=== PATIENT | female | born 1935 | race Caucasian/White ===

== ENCOUNTER → 2016-12-09 | Outpatient (CLI) | payer MEDICARE, OTHER ==
[~2016-12-09] MED LIST: ALBUPOW25 INH; FLUT250M2 IN; LOSA50TA6 PO; METO25TA5 PO; SIMV-8 PO
[2016-12-09 10:13] LABS: Basophils # (auto) 0 uL; Basophils % (auto) 0.4 % (0.0-2.0); DEFINITIVE VIEW TRANSMISSION; Eosinophils # (auto) 0.1 uL; Eosinophils % (auto) 1.2 % (0.0-7.0); Hematocrit 43.4 % (36.0-46.0); Hemoglobin 13.6 g/dL (12.2-16.2); Lymphocytes # (auto) 1.3 uL; Lymphocytes % (auto) 19.1 % (10.0-50.0); Mean Corpuscular Hemoglobin 26.7 pg (28.0-32.0); Mean Corpuscular Hgb Conc. 31.3 g/dL (32.0-36.0); Mean Corpuscular Volume 85.3 fL (80.0-100.0); Mean Platelet Volume 8.6 fL (7.4-10.4); Monocytes # (auto) 0.5 uL; Monocytes % (auto) 6.8 % (0.0-12.0); Neutrophils # (auto) 5.1 uL; Neutrophils % (auto) 72.5 % (37.0-80.0); Platelet Count (auto) 272 10^3/uL (140-450); SUSPECT VIEW TRANSMISSION
[2016-12-09 10:24] LABS: Red Cell Distribution Width 31.6 % (11.6-16.0)
[2016-12-09 10:40] LABS: Albumin 3.9 g/dL (3.4-5.0); BUN/Creatinine Ratio 30.9; Bilirubin, Total 0.4 mg/dL (0.2-1.0); Calcium 10.3 mg/dL (8.5-10.1); Potassium 4.1 mmol/L (3.5-5.1)
[2016-12-09 10:54] LABS: Platelet Estimate Adequate
[2016-12-09 10:55] LABS: Anisocytosis Moderate
[2016-12-09 10:56] LABS: Hypochromia Slight
== END | disposition home or self-care (01) ==
LOC: LAB 08:10
PROVIDERS: ATTEND Family Medicine
DX: D50.9 Iron deficiency anemia, unspecified (principal)
CPT/HCPCS: 36415; 80053; 85025; 85049

== ENCOUNTER → 2017-12-17 | Outpatient (CLI) | payer MEDICARE, OTHER ==
[~2017-12-17] MED LIST changes: +ALB5IS NEB; +DOXY-112 PO; +IPR002IS NEB; +METH4PAK PO
[2017-12-17 08:09] LABS: Basophils # (auto) 0 uL; Basophils % (auto) 0.4 % (0.0-2.0); Eosinophils # (auto) 0.1 uL; Eosinophils % (auto) 1.9 % (0.0-7.0); Hematocrit 44.1 % (36.0-46.0); Hemoglobin 14.6 g/dL (12.2-16.2); Lymphocytes # (auto) 1.3 uL; Lymphocytes % (auto) 21.5 % (10.0-50.0); Mean Corpuscular Hemoglobin 33.2 pg (28.0-32.0); Mean Corpuscular Hgb Conc. 33.1 g/dL (32.0-36.0); Mean Corpuscular Volume 100.4 fL (80.0-100.0); Monocytes # (auto) 0.5 uL; Monocytes % (auto) 8.2 % (0.0-12.0); Neutrophils # (auto) 4.1 uL; Nucleated Red Blood Cells % 0.1 %; Platelet Count (auto) 204 10^3/uL (140-450); Red Blood Cells 4.39 10^6/uL (4.0-5.20); Red Cell Distribution Width 14.8 % (11.8-14.3)
[2017-12-17 09:13] LABS: Albumin 4.3 g/dL (3.4-5.0); Bilirubin, Total 0.8 mg/dL (0.2-1.0); Calcium 9.4 mg/dL (8.5-10.1); Potassium 4.3 mmol/L (3.5-5.1); Total Protein 8.2 g/dL (6.4-8.2)
[2017-12-17 09:53] LABS: Urine Bacteria MANY /hpf (None Seen); Urine Blood TRACE /uL (Negative); Urine Mucus FEW (None Seen); Urine WBC 38 /hpf (0 - 5)
== END | disposition home or self-care (01) ==
LOC: LAB 07:31
PROVIDERS: ATTEND Family Medicine
DX: I11.0 Hypertensive heart disease with heart failure (principal); I50.9 Heart failure, unspecified; J44.9 Chronic obstructive pulmonary disease, unspecified; M17.9 Osteoarthritis of knee, unspecified; D50.8 Other iron deficiency anemias; E78.4 Other hyperlipidemia; Z72.0 Tobacco use; Z79.899 Other long term (current) drug therapy
CPT/HCPCS: 36415; 80053; 80061; 81001; 82306; 84443; 85025

== ENCOUNTER 2017-12-26 01:53 | Inpatient (IN) | payer MEDICARE, OTHER ==
[~2017-12-26] VITALS: Ht 167.6 cm; Wt 63.3 kg
[~2017-12-26 01:53] MED LIST changes: -ALB5IS NEB; -DOXY-112 PO; -IPR002IS NEB; -METH4PAK PO
[2017-12-26 07:08] LABS: Basophils # (auto) 0 uL; Basophils % (auto) 0.3 % (0.0-2.0); Eosinophils # (auto) 0.1 uL; Eosinophils % (auto) 1.2 % (0.0-7.0); Lymphocytes # (auto) 0.7 uL; Mean Corpuscular Hemoglobin 33.8 pg (28.0-32.0); Mean Corpuscular Hgb Conc. 33.2 g/dL (32.0-36.0); Mean Corpuscular Volume 101.5 fL (80.0-100.0); Monocytes # (auto) 0.4 uL; Monocytes % (auto) 7.6 % (0.0-12.0); Neutrophils # (auto) 3.7 uL; Neutrophils % (auto) 76.9 % (37.0-80.0); Nucleated Red Blood Cells % 0.1 %; Platelet Count (auto) 154 10^3/uL (140-450); Red Blood Cells 3.84 10^6/uL (4.0-5.20); Red Cell Distribution Width 14.3 % (11.8-14.3); White Blood Cell 4.9 10^3/uL (4.4-10.8)
[2017-12-26 07:14] LABS: INR 0.95 (0.9-1.15); Partial Thromboplastin Time 26.1 sec (22.64-33.71); Prothrombin Time 10.4 sec (9.37-12.3)
[2017-12-26] MEDS ORDERED: methylPREDNISolone SOD SUCC 125 MG/2 ML VL IV ONE (07:15)
[2017-12-26] MEDS ORDERED: ALBUTEROL SULF 2.5 MG/0.5ML(0.5%) NEB SOLN HHN ONE (07:15)
[2017-12-26] MEDS ORDERED: IPRATROPIUM BROM 0.5 MG/2.5ML INH SOL HHN ONE (07:15)
[2017-12-26] MEDS ORDERED: LEVOFLOXACIN 500MG 100 ML IV ONE (07:15)
[2017-12-26 07:16] LABS: Alanine Aminotransferase 28 U/L (13-56); Albumin 3.4 g/dL (3.4-5.0); Anion Gap 10 (5-15); Aspartate Aminotransferase 24 U/L (15-37); Blood Urea Nitrogen 23 mg/dL (7-18); Calcium 8.6 mg/dL (8.5-10.1); Carbon Dioxide 25 mmol/L (21-32); Chloride 105 mmol/L (98-107); GFR African American 72 mL/min; GFR Non-African American 59 mL/min; Glucose 94 mg/dL (74-106); Potassium 3.9 mmol/L (3.5-5.1); Sodium 140 mmol/L (136-145)
[2017-12-26 07:19] LABS: Alkaline Phosphatase 78 U/L (45-117); Bilirubin, Total 0.4 mg/dL (0.2-1.0); Total Protein 6.8 g/dL (6.4-8.2)
[2017-12-26] MEDS ORDERED: ONDANSETRON HCL 4 MG/2 ML VIAL IV PRN (08:00)
[2017-12-26] MEDS ORDERED: ACETAMINOPHEN 500 MG TAB PO PRN (08:00)
[2017-12-26] MEDS ORDERED: HYDROcodone-ACET 5/325MG TAB PO PRN (08:00)
[2017-12-26] MEDS: DOXYCYCLINE HYC 100MG/250ML 250 ML IV SCH ×2 (08:41→20:43)
[2017-12-26 09:05] VITALS: BP 133/74
[2017-12-26] MEDS: methylPREDNISolone SOD SUCC 40 MG/ML VL IV SCH ×2 (10:00→21:19)
[2017-12-26 10:13] LABS: Urine Bacteria NONE SEEN /hpf (None Seen); Urine Blood 1+ /uL (Negative); Urine Specific Gravity 1.024 (1.001-1.035); Urine WBC 15 /hpf (0 - 5)
[2017-12-26] MEDS: METOPROLOL TARTRATE 25 MG TAB PO SCH ×2 (10:26→21:39)
[2017-12-26] MEDS: IPRATROPIUM BROM 0.5 MG/2.5ML INH SOL NEB SCH ×2 (12:38→18:00)
[2017-12-26] MEDS: ALBUTEROL SULF 2.5 MG/0.5ML(0.5%) NEB SOLN NEB SCH ×2 (12:39→18:00)
[2017-12-26 16:45] VITALS: BP 144/87
[2017-12-26 20:00] VITALS: BP 136/81
[2017-12-26 22:00] VITALS: BP 136/81
[2017-12-27 01:28] VITALS: BP 133/80
[2017-12-27 05:00] VITALS: BP 141/78
[2017-12-27] MEDS: ALBUTEROL SULF 2.5 MG/0.5ML(0.5%) NEB SOLN NEB SCH ×4 (06:10→19:24)
[2017-12-27] MEDS: IPRATROPIUM BROM 0.5 MG/2.5ML INH SOL NEB SCH ×4 (06:10→19:24)
[2017-12-27 07:07] LABS: Basophils # (auto) 0 uL; Eosinophils # (auto) 0 uL; Hematocrit 36.9 % (36.0-46.0); Hemoglobin 12.5 g/dL (12.2-16.2); Lymphocytes # (auto) 0.3 uL; Lymphocytes % (auto) 3.9 % (10.0-50.0); Mean Corpuscular Hemoglobin 33.9 pg (28.0-32.0); Mean Corpuscular Hgb Conc. 33.9 g/dL (32.0-36.0); Mean Corpuscular Volume 100.1 fL (80.0-100.0); Monocytes # (auto) 0.2 uL; Monocytes % (auto) 2.9 % (0.0-12.0); Neutrophils # (auto) 7.4 uL; Neutrophils % (auto) 93.2 % (37.0-80.0); Nucleated Red Blood Cells % 0.1 %; Platelet Count (auto) 150 10^3/uL (140-450); Red Blood Cells 3.69 10^6/uL (4.0-5.20)
[2017-12-27 07:26] LABS: BUN/Creatinine Ratio 30.9; Calcium 8.6 mg/dL (8.5-10.1); Potassium 4.3 mmol/L (3.5-5.1)
[2017-12-27 08:00] VITALS: BP_SYST 102; BP_SYST 133; BP_DIAS 48; BP_DIAS 80
[2017-12-27] MEDS: methylPREDNISolone SOD SUCC 40 MG/ML VL IV SCH ×3 (09:53→21:53)
[2017-12-27] MEDS: DOXYCYCLINE HYC 100MG/250ML 250 ML IV SCH ×2 (09:53→20:41)
[2017-12-27] MEDS: METOPROLOL TARTRATE 25 MG TAB PO SCH ×2 (09:54→21:53)
[2017-12-27 12:42] VITALS: BP 151/86
[2017-12-27] MEDS: SODIUM CHLORIDE 0.9% 1,000 ML IV SCH ×2 (13:06→21:15)
[2017-12-27 16:26] VITALS: BP 140/81
[2017-12-27 22:00] VITALS: BP 139/80
[2017-12-28 05:00] VITALS: BP 133/74
[2017-12-28] MEDS: methylPREDNISolone SOD SUCC 40 MG/ML VL IV SCH ×3 (05:52→22:05)
[2017-12-28] MEDS: IPRATROPIUM BROM 0.5 MG/2.5ML INH SOL NEB SCH ×4 (06:08→18:48)
[2017-12-28] MEDS: ALBUTEROL SULF 2.5 MG/0.5ML(0.5%) NEB SOLN NEB SCH ×4 (06:08→18:48)
[2017-12-28 06:52] LABS: Basophils # (auto) 0 uL; Basophils % (auto) 0.1 % (0.0-2.0); Eosinophils # (auto) 0 uL; Hematocrit 38.5 % (36.0-46.0); Hemoglobin 12.6 g/dL (12.2-16.2); Lymphocytes # (auto) 0.4 uL; Lymphocytes % (auto) 3.5 % (10.0-50.0); Mean Corpuscular Hemoglobin 33.1 pg (28.0-32.0); Mean Corpuscular Hgb Conc. 32.7 g/dL (32.0-36.0); Mean Corpuscular Volume 101.1 fL (80.0-100.0); Monocytes # (auto) 0.2 uL; Monocytes % (auto) 2.2 % (0.0-12.0); Neutrophils # (auto) 10.8 uL; Neutrophils % (auto) 94.2 % (37.0-80.0); Nucleated Red Blood Cells % 0.1 %; Platelet Count (auto) 163 10^3/uL (140-450); Red Cell Distribution Width 14.2 % (11.8-14.3); White Blood Cell 11.5 10^3/uL (4.4-10.8)
[2017-12-28 07:10] LABS: BUN/Creatinine Ratio 35.2; Potassium 4.1 mmol/L (3.5-5.1)
[2017-12-28] MEDS: SODIUM CHLORIDE 0.9% 1,000 ML IV SCH (07:15)
[2017-12-28] MEDS ORDERED: DEXTROSE (50%) 50ML SYRG IV ONE (07:45)
[2017-12-28 09:00] VITALS: BP 118/65
[2017-12-28] MEDS ORDERED: DEXTROSE (50%) 50ML SYRG IV PRN ×2 (09:30→14:15)
[2017-12-28] MEDS: DOXYCYCLINE HYC 100MG/250ML 250 ML IV SCH ×2 (09:37→20:03)
[2017-12-28] MEDS: METOPROLOL TARTRATE 25 MG TAB PO SCH ×2 (09:39→22:06)
[2017-12-28] MEDS ORDERED: InsuLIN REG 1unit/0.01ml Soln (100units/ml) SC ONE (11:30)
[2017-12-28] MEDS ORDERED: ACCU-CHEK COMFORT CURVE STRIP VI ONE (11:30)
[2017-12-28 13:00] VITALS: BP 131/83
[2017-12-28 17:00] VITALS: BP 136/68
[2017-12-28] MEDS: InsuLIN REG 1unit/0.01ml Soln (100units/ml) SC SCH ×2 (17:00→22:06)
[2017-12-28] MEDS: ACCU-CHEK COMFORT CURVE STRIP VI SCH ×2 (17:48→22:06)
[2017-12-28 22:00] VITALS: BP 157/87
[2017-12-29] MEDS: ALBUTEROL SULF 2.5 MG/0.5ML(0.5%) NEB SOLN NEB SCH ×3 (00:59→11:51)
[2017-12-29] MEDS: IPRATROPIUM BROM 0.5 MG/2.5ML INH SOL NEB SCH ×3 (01:00→11:51)
[2017-12-29 05:00] VITALS: BP 147/78
[2017-12-29] MEDS: methylPREDNISolone SOD SUCC 40 MG/ML VL IV SCH ×2 (06:24→14:00)
[2017-12-29] MEDS: ACCU-CHEK COMFORT CURVE STRIP VI SCH ×2 (06:25→11:30)
[2017-12-29] MEDS: InsuLIN REG 1unit/0.01ml Soln (100units/ml) SC SCH ×2 (06:31→11:30)
[2017-12-29 07:01] LABS: Basophils # (auto) 0 uL; Eosinophils # (auto) 0 uL; Hematocrit 39.9 % (36.0-46.0); Hemoglobin 13.5 g/dL (12.2-16.2); Lymphocytes # (auto) 0.3 uL; Lymphocytes % (auto) 3.3 % (10.0-50.0); Mean Corpuscular Hemoglobin 33.6 pg (28.0-32.0); Mean Corpuscular Hgb Conc. 33.8 g/dL (32.0-36.0); Mean Corpuscular Volume 99.5 fL (80.0-100.0); Monocytes # (auto) 0.3 uL; Monocytes % (auto) 2.9 % (0.0-12.0); Neutrophils # (auto) 9.5 uL; Neutrophils % (auto) 93.8 % (37.0-80.0); Platelet Count (auto) 165 10^3/uL (140-450); Red Blood Cells 4.01 10^6/uL (4.0-5.20); White Blood Cell 10.1 10^3/uL (4.4-10.8)
[2017-12-29 07:10] LABS: Potassium 4.3 mmol/L (3.5-5.1)
[2017-12-29 07:19] LABS: BUN/Creatinine Ratio 32.6; Calcium 9.3 mg/dL (8.5-10.1)
[2017-12-29 09:00] VITALS: BP 138/66
[2017-12-29] MEDS: METOPROLOL TARTRATE 25 MG TAB PO SCH (10:13)
[2017-12-29] MEDS: DOXYCYCLINE HYC 100MG/250ML 250 ML IV SCH (10:13)
[2017-12-29] MEDS ORDERED: ALB5IS NEB (10:38)
[2017-12-29] MEDS ORDERED: DOXY-112 PO (10:38)
[2017-12-29] MEDS ORDERED: IPR002IS NEB (10:38)
[2017-12-29] MEDS ORDERED: METH4PAK PO (10:38)
[2017-12-29 13:00] VITALS: BP 152/81
[2017-12-29] MEDS ORDERED: cloNIDine HCL 0.1 MG TAB PO ONE (15:15)
[2017-12-29 16:54] VITALS: BP 167/110
[2017-12-29 17:25] VITALS: BP 152/81
[2017-12-29] MEDS ORDERED: DOXYCYCLINE 100 MG TAB/CAP PO SCH (22:00)
== END 2017-12-29 17:45 | disposition home health service (06) | DRG 189 ==
LOC: EDBD 01:53 → ER 01:53 → OVERFLOW 01:54 → WEST WING 11:45
PROVIDERS: ADMIT Nurse Practitioner Family; ATTEND Internal Medicine
DX: J96.00 Acute respiratory failure, unspecified whether with hypoxia or hypercapnia (principal); I48.91 Unspecified atrial fibrillation; J44.1 Chronic obstructive pulmonary disease with (acute) exacerbation; Z99.81 Dependence on supplemental oxygen; I12.9 Hypertensive chronic kidney disease with stage 1 through stage 4 chronic kidney disease, or unspecified chronic kidney disease; N18.9 Chronic kidney disease, unspecified; E78.5 Hyperlipidemia, unspecified; F17.210 Nicotine dependence, cigarettes, uncomplicated; Z79.899 Other long term (current) drug therapy; Z83.3 Family history of diabetes mellitus; Z90.710 Acquired absence of both cervix and uterus; Z90.49 Acquired absence of other specified parts of digestive tract; Z71.6 Tobacco abuse counseling
CPT/HCPCS: 36415; 71045; 80048; 80053; 81001; 82962; 83605; 83880; 84484; 85025; 85610; 85730; 87040; 87086; 87400; 93005; 94640; 94644; 94761; 96365; 96375; J1815; J1956; J3490

== ENCOUNTER 2018-05-09 21:18 | Emergency (ER) | payer MEDICARE, OTHER ==
[~2018-05-09] VITALS: Ht 162.6 cm; Wt 68.0 kg
[~2018-05-09 21:18] MED LIST changes: +ALB5IS NEB; +DOXY-112 PO; +IPR002IS NEB; +METH4PAK PO
[2018-05-09 23:34] LABS: Basophils # (auto) 0 uL; Basophils % (auto) 0.4 % (0.0-2.0); Eosinophils # (auto) 0 uL; Eosinophils % (auto) 0.3 % (0.0-7.0); Hematocrit 40.9 % (36.0-46.0); Hemoglobin 13.6 g/dL (12.2-16.2); Lymphocytes # (auto) 1.2 uL; Lymphocytes % (auto) 13.5 % (10.0-50.0); Mean Corpuscular Hemoglobin 32.6 pg (28.0-32.0); Mean Corpuscular Hgb Conc. 33.3 g/dL (32.0-36.0); Mean Corpuscular Volume 97.9 fL (80.0-100.0); Monocytes # (auto) 0.5 uL; Monocytes % (auto) 5.7 % (0.0-12.0); Neutrophils # (auto) 6.9 uL; Neutrophils % (auto) 80.1 % (37.0-80.0); Platelet Count (auto) 173 10^3/uL (140-450); Red Blood Cells 4.18 10^6/uL (4.0-5.20); Red Cell Distribution Width 14.8 % (11.8-14.3); White Blood Cell 8.6 10^3/uL (4.4-10.8)
[2018-05-09 23:45] LABS: INR 0.91 (0.9-1.15); Partial Thromboplastin Time 24.5 sec (23.78-33.04); Prothrombin Time 9.8 sec (9.27-12.13)
[2018-05-09 23:57] LABS: Albumin 3.9 g/dL (3.4-5.0); Calcium 8.4 mg/dL (8.5-10.1); Potassium 4.4 mmol/L (3.5-5.1)
[2018-05-10 00:03] LABS: Bilirubin, Total 0.4 mg/dL (0.2-1.0); Total Protein 7.2 g/dL (6.4-8.2)
[2018-05-10 00:05] LABS: BUN/Creatinine Ratio 34.3
[2018-05-10] MEDS ORDERED: METOPROLOL TARTRATE 50 MG TAB PO ONE (01:15)
[2018-05-10] MEDS ORDERED: THIAMINE HCL 100 MG TAB PO ONE (01:15)
[2018-05-10] MEDS ORDERED: METOPROLOL TARTRATE 25 MG TAB PO ONE (01:30)
[2018-05-10 04:00] VITALS: BP 118/92
== END 2018-05-10 03:29 | disposition home or self-care (01) ==
LOC: EDBD 21:18 → ER 21:21
DX: S00.93XA Contusion of unspecified part of head, initial encounter (principal); F10.10 Alcohol abuse, uncomplicated; R00.0 Tachycardia, unspecified; I48.91 Unspecified atrial fibrillation; I12.9 Hypertensive chronic kidney disease with stage 1 through stage 4 chronic kidney disease, or unspecified chronic kidney disease; N18.9 Chronic kidney disease, unspecified; J44.9 Chronic obstructive pulmonary disease, unspecified; E78.5 Hyperlipidemia, unspecified; F17.210 Nicotine dependence, cigarettes, uncomplicated; Z79.899 Other long term (current) drug therapy; Z90.49 Acquired absence of other specified parts of digestive tract; Z90.710 Acquired absence of both cervix and uterus; W18.39XA Other fall on same level, initial encounter; Y93.89 Activity, other specified; Y99.8 Other external cause status; Y92.008 Other place in unspecified non-institutional (private) residence as the place of occurrence of the external cause
CPT/HCPCS: 36415; 70450; 71045; 72125; 80053; 85025; 85610; 85730; 93005

== ENCOUNTER 2019-02-07 12:39 | Emergency (ER) | payer MEDICARE, OTHER ==
[~2019-02-07] VITALS: Ht 152.4 cm; Wt 61.7 kg
[~2019-02-07 12:39] MED LIST changes: +LOSA-46 PO; -LOSA50TA6 PO
[2019-02-07 12:46] VITALS: BP 144/71
[2019-02-07] MEDS ORDERED: KETOROLAC TROMETH 30 MG/ML 1ML VIAL IM ONE (14:30)
== END 2019-02-07 14:57 | disposition home or self-care (01) ==
LOC: ER 12:44
DX: M47.892 Other spondylosis, cervical region (principal); M62.838 Other muscle spasm; J44.9 Chronic obstructive pulmonary disease, unspecified; E78.5 Hyperlipidemia, unspecified; I12.9 Hypertensive chronic kidney disease with stage 1 through stage 4 chronic kidney disease, or unspecified chronic kidney disease; N18.9 Chronic kidney disease, unspecified; I48.91 Unspecified atrial fibrillation; F17.210 Nicotine dependence, cigarettes, uncomplicated; Z90.49 Acquired absence of other specified parts of digestive tract; Z90.710 Acquired absence of both cervix and uterus
CPT/HCPCS: 72125; 93005; 96372; 99284; J1885

== ENCOUNTER → 2019-03-09 | Outpatient (CLI) | payer MEDICARE, OTHER ==
[2019-03-09 10:47] LABS: Basophils # (auto) 0 uL; Basophils % (auto) 0.2 % (0.0-2.0); Eosinophils # (auto) 0.1 uL; Eosinophils % (auto) 0.9 % (0.0-7.0); Hematocrit 39.8 % (36.0-46.0); Hemoglobin 12.5 g/dL (12.2-16.2); Lymphocytes # (auto) 0.9 uL; Mean Corpuscular Hemoglobin 28.7 pg (28.0-32.0); Mean Corpuscular Hgb Conc. 31.5 g/dL (32.0-36.0); Mean Corpuscular Volume 91.1 fL (80.0-100.0); Monocytes # (auto) 0.3 uL; Monocytes % (auto) 5.3 % (0.0-12.0); Neutrophils # (auto) 4.7 uL; Neutrophils % (auto) 78.6 % (37.0-80.0); Nucleated Red Blood Cells % 0.1 %; Platelet Count (auto) 253 10^3/uL (140-450); Red Blood Cells 4.36 10^6/uL (4.0-5.20); Red Cell Distribution Width 16.5 % (11.8-14.3)
[2019-03-09 10:48] LABS: Urine Bacteria FEW /hpf (None Seen); Urine Blood Negative /uL (Negative); Urine Specific Gravity 1.017 (1.001-1.035); Urine WBC 51 /hpf (0 - 5)
[2019-03-09 11:01] LABS: Potassium 4.3 mmol/L (3.5-5.1)
[2019-03-09 11:13] LABS: Albumin 4.1 g/dL (3.4-5.0); Bilirubin, Total 0.4 mg/dL (0.2-1.0); Calcium 10.2 mg/dL (8.5-10.1)
== END | disposition home or self-care (01) ==
LOC: LAB 09:20
PROVIDERS: ATTEND Family Medicine
DX: M17.11 Unilateral primary osteoarthritis, right knee (principal); I10 Essential (primary) hypertension; E78.49 Other hyperlipidemia; J44.9 Chronic obstructive pulmonary disease, unspecified; E55.9 Vitamin D deficiency, unspecified; Z72.0 Tobacco use
CPT/HCPCS: 36415; 80053; 80061; 81001; 82306; 82607; 84443; 85025

== ENCOUNTER → 2019-12-17 | Outpatient (CLI) | payer MEDICARE, OTHER ==
[~2019-12-17] MED LIST changes: -LOSA-46 PO; +LOSA-69 PO
[2019-12-17 09:11] LABS: Basophils # (auto) 0 uL; Eosinophils # (auto) 0.1 uL; Lymphocytes # (auto) 0.9 uL; Monocytes # (auto) 0.4 uL; Neutrophils # (auto) 3.5 uL; Nucleated Red Blood Cells % 0.1 %
[2019-12-17 09:14] LABS: Basophils % (auto) 0.4 % (0.0-2.0); Hematocrit 34.7 % (36.0-46.0); Hemoglobin 10.8 g/dL (12.2-16.2); Lymphocytes % (auto) 18.8 % (10.0-50.0); Mean Corpuscular Hemoglobin 25.3 pg (28.0-32.0); Mean Corpuscular Hgb Conc. 31.2 g/dL (32.0-36.0); Monocytes % (auto) 8.9 % (0.0-12.0); Neutrophils % (auto) 70.9 % (37.0-80.0); Platelet Count (auto) 261 10^3/uL (140-450); Red Blood Cells 4.28 10^6/uL (4.0-5.20)
[2019-12-17 09:17] LABS: Red Cell Distribution Width 26.8 % (11.8-14.3)
[2019-12-17 09:21] LABS: Urine Bacteria FEW /hpf (None Seen); Urine Blood Negative /uL (Negative); Urine Hyaline Cast FEW /lpf (0 - 2); Urine Specific Gravity 1.017 (1.001-1.035); Urine WBC 39 /hpf (0 - 5)
[2019-12-17 09:54] LABS: Albumin 3.9 g/dL (3.4-5.0); Potassium 5.2 mmol/L (3.5-5.1)
[2019-12-17 10:02] LABS: BUN/Creatinine Ratio 21.5; Bilirubin, Total 0.5 mg/dL (0.2-1.0); Calcium 10.9 mg/dL (8.5-10.1); Total Protein 7.3 g/dL (6.4-8.2)
== END | disposition home or self-care (01) ==
LOC: LAB 08:38
PROVIDERS: ATTEND Family Medicine
DX: I10 Essential (primary) hypertension (principal); E55.9 Vitamin D deficiency, unspecified; J44.9 Chronic obstructive pulmonary disease, unspecified; E78.49 Other hyperlipidemia; D50.9 Iron deficiency anemia, unspecified; Z72.0 Tobacco use; Z99.89 Dependence on other enabling machines and devices
CPT/HCPCS: 36415; 80053; 80061; 81001; 82306; 84443; 85025

== ENCOUNTER → 2020-10-17 | Outpatient (CLI) | payer MEDICARE, OTHER ==
[2020-10-17 13:55] LABS: Basophils # (auto) 0 10 ^3/uL (0-0.2); Basophils % (auto) 0.4 % (0.0-2.0); Eosinophils # (auto) 0.1 10 ^3/uL (0-0.8); Eosinophils % (auto) 1.5 % (0.0-7.0); Hematocrit 43.9 % (36.0-46.0); Hemoglobin 14.5 g/dL (12.2-16.2); Lymphocytes # (auto) 1.1 10 ^3/uL (0.4-5.4); Lymphocytes % (auto) 15.1 % (10.0-50.0); Mean Corpuscular Hemoglobin 28.4 pg (28.0-32.0); Mean Corpuscular Hgb Conc. 32.9 g/dL (32.0-36.0); Mean Corpuscular Volume 86.3 fL (80.0-100.0); Monocytes # (auto) 0.4 10 ^3/uL (0-1.3); Monocytes % (auto) 6.3 % (0.0-12.0); Neutrophils # (auto) 5.5 10 ^3/uL (1.6-8.6); Neutrophils % (auto) 76.7 % (37.0-80.0); Nucleated Red Blood Cells % 0.1 %; Platelet Count (auto) 229 10^3/uL (140-450); Red Blood Cells 5.09 10^6/uL (4.0-5.20); Red Cell Distribution Width 15.4 % (11.8-14.3); White Blood Cell 7.2 10^3/uL (4.4-10.8)
[2020-10-17 14:10] LABS: Urine Bacteria MANY /hpf (None Seen); Urine Blood Negative /uL (Negative); Urine Mucus FEW (None Seen); Urine Specific Gravity 1.016 (1.001-1.035); Urine WBC 39 /hpf (0 - 5)
[2020-10-17 14:49] LABS: Albumin 3.8 g/dL (3.4-5.0); Calcium 9.8 mg/dL (8.5-10.1); Potassium 4.8 mmol/L (3.5-5.1)
[2020-10-17 14:54] LABS: Bilirubin, Total 0.6 mg/dL (0.2-1.0); Total Protein 7.4 g/dL (6.4-8.2)
== END | disposition home or self-care (01) ==
LOC: LAB 13:30
PROVIDERS: ATTEND Family Medicine
DX: I10 Essential (primary) hypertension (principal); E78.49 Other hyperlipidemia; J44.9 Chronic obstructive pulmonary disease, unspecified; K21.9 Gastro-esophageal reflux disease without esophagitis; E55.9 Vitamin D deficiency, unspecified; D50.8 Other iron deficiency anemias
CPT/HCPCS: 36415; 80053; 80061; 81001; 82306; 82607; 84443; 85025

== ENCOUNTER → 2021-04-13 | Outpatient (CLI) | payer MEDICARE, OTHER ==
[2021-04-13 10:20] LABS: Basophils # (auto) 0 10 ^3/uL (0-0.2); Basophils % (auto) 0.3 % (0.0-2.0); Eosinophils # (auto) 0.1 10 ^3/uL (0-0.8); Eosinophils % (auto) 1.5 % (0.0-7.0); Hematocrit 42.2 % (36.0-46.0); Hemoglobin 14.3 g/dL (12.2-16.2); Lymphocytes % (auto) 16.3 % (10.0-50.0); Mean Corpuscular Hemoglobin 30.2 pg (28.0-32.0); Mean Corpuscular Hgb Conc. 33.9 g/dL (32.0-36.0); Mean Corpuscular Volume 88.9 fL (80.0-100.0); Monocytes # (auto) 0.4 10 ^3/uL (0-1.3); Neutrophils # (auto) 4.7 10 ^3/uL (1.6-8.6); Neutrophils % (auto) 75.9 % (37.0-80.0); Nucleated Red Blood Cells % 0.2 %; Platelet Count (auto) 174 10^3/uL (140-450); Red Blood Cells 4.75 10^6/uL (4.0-5.20); Red Cell Distribution Width 14.4 % (11.8-14.3); White Blood Cell 6.3 10^3/uL (4.4-10.8)
[2021-04-13 11:00] LABS: Urine Bacteria FEW /hpf (None Seen); Urine Blood Negative /uL (Negative); Urine Specific Gravity 1.018 (1.001-1.035); Urine WBC 7 /hpf (0 - 5)
[2021-04-13 11:01] LABS: Potassium 4.8 mmol/L (3.5-5.1)
[2021-04-13 11:15] LABS: Albumin 3.9 g/dL (3.4-5.0); BUN/Creatinine Ratio 34.3; Bilirubin, Total 0.6 mg/dL (0.2-1.0); Calcium 9.8 mg/dL (8.5-10.1); Total Protein 7.5 g/dL (6.4-8.2)
== END | disposition home or self-care (01) ==
LOC: LAB 09:50
PROVIDERS: ATTEND Family Medicine
DX: I10 Essential (primary) hypertension (principal); D50.8 Other iron deficiency anemias; E78.49 Other hyperlipidemia; K21.9 Gastro-esophageal reflux disease without esophagitis; N18.30 Chronic kidney disease, stage 3 unspecified; J44.9 Chronic obstructive pulmonary disease, unspecified; R79.89 Other specified abnormal findings of blood chemistry
CPT/HCPCS: 36415; 80053; 80061; 81001; 82607; 84443; 85025

== ENCOUNTER → 2021-08-30 | Outpatient (CLI) | payer MEDICARE, OTHER | END | disposition home or self-care (01) | LOC: LAB 15:28 | PROVIDERS: ATTEND Internal Medicine Pulmonary Disease | DX: Z01.812 Encounter for preprocedural laboratory examination (principal); Z20.822 Contact with and (suspected) exposure to COVID-19 | CPT/HCPCS: 36415; 87426 ==

== ENCOUNTER → 2021-08-31 | Outpatient (CLI) | payer MEDICARE, OTHER ==
[~2021-08-31] MED LIST changes: +ALBUTEROL SULF 2.5 MG/0.5ML(0.5%) NEB SOLN ONE
== END | disposition home or self-care (01) ==
LOC: RT 10:53
PROVIDERS: ATTEND Internal Medicine Pulmonary Disease
DX: J44.9 Chronic obstructive pulmonary disease, unspecified (principal)
CPT/HCPCS: 94060

== ENCOUNTER 2021-09-02 02:31 | Inpatient (IN) | payer MEDICARE, OTHER ==
[~2021-09-02] VITALS: Ht 154.9 cm; Wt 50.9 kg
[~2021-09-02 02:31] MED LIST changes: -ALBUTEROL SULF 2.5 MG/0.5ML(0.5%) NEB SOLN ONE
[2021-09-02] MEDS ORDERED: ALBUTEROL SULF 2.5 MG/0.5ML(0.5%) NEB SOLN HHN ONE (03:00)
[2021-09-02] MEDS ORDERED: DexAMETHasone INJECTION 10 MG in D5W 5% 50 ML IV ONE (03:00)
[2021-09-02] MEDS ORDERED: IPRATROPIUM BROM 0.5 MG/2.5ML INH SOL HHN ONE (03:00)
[2021-09-02] MEDS ORDERED: ACETAMINOPHEN 325 MG TAB PO ONE (03:45)
[2021-09-02] MEDS ORDERED: SODIUM CHLORIDE 0.9% 1,000 ML IV ONE ×2 (03:45→05:30)
[2021-09-02] MEDS ORDERED: ACETAMINOPHEN 325 MG TAB PO STA (03:45)
[2021-09-02] MEDS ORDERED: IBUPROFEN 400 MG TAB PO STA (03:45)
[2021-09-02] MEDS ORDERED: PIPERACILLIN-TAZOB 3.375GM 100 ML IV ONE (03:45)
[2021-09-02 04:03] LABS: Basophils # (auto) 0 10 ^3/uL (0-0.2); Basophils % (auto) 0.1 % (0.0-2.0); Eosinophils # (auto) 0 10 ^3/uL (0-0.8); Hematocrit 37.9 % (36.0-46.0); Hemoglobin 12.4 g/dL (12.2-16.2); Lymphocytes # (auto) 0.2 10 ^3/uL (0.4-5.4); Lymphocytes % (auto) 1.7 % (10.0-50.0); Mean Corpuscular Hemoglobin 29.1 pg (28.0-32.0); Mean Corpuscular Hgb Conc. 32.8 g/dL (32.0-36.0); Mean Corpuscular Volume 88.5 fL (80.0-100.0); Monocytes # (auto) 0.5 10 ^3/uL (0-1.3); Monocytes % (auto) 4.3 % (0.0-12.0); Neutrophils # (auto) 9.9 10 ^3/uL (1.6-8.6); Neutrophils % (auto) 93.9 % (37.0-80.0); Red Blood Cells 4.28 10^6/uL (4.0-5.20); Red Cell Distribution Width 14.5 % (11.8-14.3); White Blood Cell 10.6 10^3/uL (4.4-10.8)
[2021-09-02 04:25] LABS: Albumin 2.8 g/dL (3.4-5.0); Anion Gap 9 (5-15); BUN/Creatinine Ratio 35.8; Blood Urea Nitrogen 69 mg/dL (7-18); Carbon Dioxide 23 mmol/L (21-32); Chloride 102 mmol/L (98-107); GFR African American 32 mL/min; GFR Non-African American 26 mL/min; Glucose 108 mg/dL (74-106); Magnesium 1.7 mg/dL (1.6-2.6); Potassium 4.6 mmol/L (3.5-5.1); Sodium 134 mmol/L (136-145)
[2021-09-02] MEDS ORDERED: DexAMETHasone SOD PHOS 10MG/1ML VIAL INJ ONE (04:26)
[2021-09-02 04:41] LABS: Urine Bacteria MOD /hpf (None Seen); Urine Hyaline Cast FEW /lpf (0 - 2); Urine Mucus FEW (None Seen); Urine WBC 35 /hpf (0 - 5); Urine WBC Clumps PRESENT /hpf (None Seen)
[2021-09-02 04:51] LABS: Alanine Aminotransferase 40 U/L (13-56); Alkaline Phosphatase 115 U/L (45-117); Aspartate Aminotransferase 36 U/L (15-37); Bilirubin, Total 1.2 mg/dL (0.2-1.0); Total Protein 6.4 g/dL (6.4-8.2)
[2021-09-02 04:51] LABS: Urine Blood 1+ /uL (Negative)
[2021-09-02] MEDS ORDERED: NITROGLYCERIN 0.4 MG SL TAB SL PRN (09:00)
[2021-09-02] MEDS ORDERED: MORPHINE SULFATE INJECTION 2 MG/ML SYRG IV PRN (09:00)
[2021-09-02] MEDS ORDERED: ALBUTEROL SULF HFA 90MCG INH 200DOSE IN PRN (09:15)
[2021-09-02] MEDS ORDERED: cefTRIAXone 1GM/50ML D5W 50 ML IV ONE (09:30)
[2021-09-02] MEDS ORDERED: LACTULOSE 20Gm/30ML SOLN PO PRN (09:30)
[2021-09-02] MEDS ORDERED: ONDANSETRON HCL 4 MG/2 ML VIAL IV PRN (09:30)
[2021-09-02] MEDS ORDERED: ACETAMINOPHEN 500 MG TAB PO PRN (09:30)
[2021-09-02] MEDS ORDERED: DexAMETHasone INJECTION 10 MG in D5W 5% 50 ML IV SCH (10:00)
[2021-09-02] MEDS ORDERED: BUDESONIDE (INHALATION) 180 MCG IH IN SCH (10:00)
[2021-09-02] MEDS ORDERED: ZINC SULFATE 220mg CAP or TAB PO SCH (10:00)
[2021-09-02] MEDS: FAMOTIDINE 20 MG TAB PO SCH (10:21)
[2021-09-02] MEDS: ENOXAPARIN SOD 40 MG/0.4 ML SYRINGE SC SCH (10:21)
[2021-09-02] MEDS: CHOLECALCIFEROL (VITD3) 2,000 UNIT CAP/TAB PO SCH (10:21)
[2021-09-02] MEDS: ASCORBIC ACID 1,000 MG TAB PO SCH (10:21)
[2021-09-02] MEDS: DOXYCYCLINE 100MG/250ML 250 ML IV SCH ×2 (10:21→22:23)
[2021-09-02] MEDS: DexAMETHasone SOD PHOS 10MG/1ML VIAL INJ IV SCH (10:21)
[2021-09-02] MEDS: traMADol HCL 50 MG TAB PO PRN (20:58)
[2021-09-03 07:10] LABS: Albumin 2.4 g/dL (3.4-5.0); Calcium 9.1 mg/dL (8.5-10.1); Potassium 4.6 mmol/L (3.5-5.1)
[2021-09-03 07:12] LABS: BUN/Creatinine Ratio 41.5
[2021-09-03 07:15] LABS: Bilirubin, Total 0.4 mg/dL (0.2-1.0); Total Protein 6.3 g/dL (6.4-8.2)
[2021-09-03 07:21] LABS: Basophils # (auto) 0 10 ^3/uL (0-0.2); Eosinophils # (auto) 0 10 ^3/uL (0-0.8); Hematocrit 36.7 % (36.0-46.0); Hemoglobin 12.3 g/dL (12.2-16.2); Lymphocytes # (auto) 0.3 10 ^3/uL (0.4-5.4); Lymphocytes % (auto) 1.8 % (10.0-50.0); Mean Corpuscular Hemoglobin 29.8 pg (28.0-32.0); Mean Corpuscular Hgb Conc. 33.6 g/dL (32.0-36.0); Mean Corpuscular Volume 88.6 fL (80.0-100.0); Monocytes # (auto) 0.7 10 ^3/uL (0-1.3); Monocytes % (auto) 4.9 % (0.0-12.0); Neutrophils # (auto) 13.6 10 ^3/uL (1.6-8.6); Neutrophils % (auto) 93.3 % (37.0-80.0); Nucleated Red Blood Cells % 0.1 %; Red Blood Cells 4.14 10^6/uL (4.0-5.20); Red Cell Distribution Width 14.5 % (11.8-14.3); White Blood Cell 14.6 10^3/uL (4.4-10.8)
[2021-09-03] MEDS ORDERED: cefTRIAXone 1GM/50ML D5W 50 ML IV SCH (09:00)
[2021-09-03] MEDS: FAMOTIDINE 20 MG TAB PO SCH (13:31)
[2021-09-03] MEDS: CHOLECALCIFEROL (VITD3) 2,000 UNIT CAP/TAB PO SCH (13:32)
[2021-09-03] MEDS: ASCORBIC ACID 1,000 MG TAB PO SCH (13:32)
[2021-09-03] MEDS: ENOXAPARIN SOD 40 MG/0.4 ML SYRINGE SC SCH (13:33)
[2021-09-03] MEDS: DexAMETHasone SOD PHOS 10MG/1ML VIAL INJ IV SCH (14:29)
[2021-09-03] MEDS: DOXYCYCLINE 100MG/250ML 250 ML IV SCH ×2 (16:32→23:02)
[2021-09-03] MEDS ORDERED: CEFTRIAXONE SODIUM 2 GM in D5W 5% 50 ML IV ONE (17:00)
[2021-09-03 19:57] VITALS: BP 107/57
[2021-09-03] MEDS: methylPREDNISolone SOD SUCC 40 MG/ML VL IV SCH (23:01)
[2021-09-03 23:34] VITALS: BP 132/87
[2021-09-04 05:00] VITALS: BP 145/92
[2021-09-04 05:52] LABS: Basophils # (auto) 0 10 ^3/uL (0-0.2); Eosinophils # (auto) 0 10 ^3/uL (0-0.8); Hemoglobin 13.4 g/dL (12.2-16.2); Lymphocytes # (auto) 0.4 10 ^3/uL (0.4-5.4); Lymphocytes % (auto) 2.9 % (10.0-50.0); Mean Corpuscular Hemoglobin 29.6 pg (28.0-32.0); Mean Corpuscular Hgb Conc. 32.6 g/dL (32.0-36.0); Mean Corpuscular Volume 90.7 fL (80.0-100.0); Monocytes # (auto) 0.3 10 ^3/uL (0-1.3); Monocytes % (auto) 2.1 % (0.0-12.0); Neutrophils # (auto) 13.1 10 ^3/uL (1.6-8.6); Red Blood Cells 4.52 10^6/uL (4.0-5.20); Red Cell Distribution Width 14.8 % (11.8-14.3); White Blood Cell 13.8 10^3/uL (4.4-10.8)
[2021-09-04] MEDS: methylPREDNISolone SOD SUCC 40 MG/ML VL IV SCH ×3 (06:09→21:01)
[2021-09-04 06:14] LABS: BUN/Creatinine Ratio 49.5; Calcium 9.4 mg/dL (8.5-10.1); Potassium 4.7 mmol/L (3.5-5.1)
[2021-09-04] MEDS: FAMOTIDINE 20 MG TAB PO SCH (08:44)
[2021-09-04] MEDS: CHOLECALCIFEROL (VITD3) 2,000 UNIT CAP/TAB PO SCH (08:44)
[2021-09-04] MEDS: ENOXAPARIN SOD 40 MG/0.4 ML SYRINGE SC SCH (08:44)
[2021-09-04 09:00] VITALS: BP 151/81
[2021-09-04] MEDS ORDERED: cefTRIAXone 1GM/50ML D5W 50 ML IV SCH (09:00)
[2021-09-04] MEDS: DOXYCYCLINE 100MG/250ML 250 ML IV SCH ×2 (10:08→21:01)
[2021-09-04 13:00] VITALS: BP 150/78
[2021-09-04] MEDS ORDERED: ERTAPENEM SOD INJ 1 GM in SODIUM CHL 0.9% 50 ML IV ONE (15:45)
[2021-09-04 17:00] VITALS: BP 165/97
[2021-09-04] MEDS: traMADol HCL 50 MG TAB PO PRN (21:00)
[2021-09-04 22:00] VITALS: BP 139/94
[2021-09-05] MEDS ORDERED: HALOPERIDOL LACTATE 5 MG/ML INJ VIAL IM ONE (01:15)
[2021-09-05] MEDS: methylPREDNISolone SOD SUCC 40 MG/ML VL IV SCH ×2 (05:42→13:55)
[2021-09-05] MEDS ORDERED: FERR-20 PO (07:10)
[2021-09-05] MEDS ORDERED: PANT40T PO (07:10)
[2021-09-05] MEDS ORDERED: FOLI1TAB6 PO (07:10)
[2021-09-05 09:00] VITALS: BP 139/73
[2021-09-05] MEDS: CHOLECALCIFEROL (VITD3) 2,000 UNIT CAP/TAB PO SCH (09:27)
[2021-09-05] MEDS: ENOXAPARIN SOD 40 MG/0.4 ML SYRINGE SC SCH (09:27)
[2021-09-05] MEDS: FAMOTIDINE 20 MG TAB PO SCH (09:28)
[2021-09-05] MEDS: ERTAPENEM SOD INJ 1 GM in SODIUM CHL 0.9% 50 ML IV SCH (09:29)
[2021-09-05] MEDS: DOXYCYCLINE 100MG/250ML 250 ML IV SCH ×2 (11:12→21:27)
[2021-09-05 13:00] VITALS: BP 142/78
[2021-09-05 17:00] VITALS: BP 162/90
[2021-09-05 22:00] VITALS: BP 124/88
[2021-09-06 05:00] VITALS: BP 145/79
[2021-09-06 06:58] LABS: Potassium 4.1 mmol/L (3.5-5.1)
[2021-09-06 07:04] LABS: BUN/Creatinine Ratio 51.8; Calcium 9.6 mg/dL (8.5-10.1); Magnesium 2.2 mg/dL (1.6-2.6)
[2021-09-06 09:00] VITALS: BP 127/68
[2021-09-06] MEDS: ENOXAPARIN SOD 40 MG/0.4 ML SYRINGE SC SCH (09:40)
[2021-09-06] MEDS: FAMOTIDINE 20 MG TAB PO SCH (09:40)
[2021-09-06] MEDS: ERTAPENEM SOD INJ 1 GM in SODIUM CHL 0.9% 50 ML IV SCH (09:40)
[2021-09-06] MEDS: CHOLECALCIFEROL (VITD3) 2,000 UNIT CAP/TAB PO SCH (09:40)
[2021-09-06] MEDS: DOXYCYCLINE 100MG/250ML 250 ML IV SCH (10:55)
[2021-09-06 12:00] VITALS: BP 137/79
[2021-09-06 16:00] VITALS: BP 105/58
[2021-09-06 22:00] VITALS: BP 119/69
[2021-09-07] VITALS (7 sets, daily range): BP systolic 108–145; BP diastolic 59–76
[2021-09-07] MEDS: IPRATROPIUM BROM 0.5 MG/2.5ML INH SOL NEB PRN (06:19)
[2021-09-07] MEDS: ALBUTEROL SULF 2.5 MG/0.5ML(0.5%) NEB SOLN NEB PRN (06:19)
[2021-09-07 06:31] LABS: Basophils # (auto) 0 10 ^3/uL (0-0.2); Eosinophils # (auto) 0 10 ^3/uL (0-0.8); Eosinophils % (auto) 0.2 % (0.0-7.0); Hematocrit 47.3 % (36.0-46.0); Hemoglobin 15.7 g/dL (12.2-16.2); Lymphocytes # (auto) 1.2 10 ^3/uL (0.4-5.4); Lymphocytes % (auto) 11.9 % (10.0-50.0); Mean Corpuscular Hemoglobin 29.2 pg (28.0-32.0); Mean Corpuscular Hgb Conc. 33.1 g/dL (32.0-36.0); Mean Corpuscular Volume 88.1 fL (80.0-100.0); Monocytes # (auto) 0.9 10 ^3/uL (0-1.3); Monocytes % (auto) 9.6 % (0.0-12.0); Neutrophils # (auto) 7.7 10 ^3/uL (1.6-8.6); Neutrophils % (auto) 78.3 % (37.0-80.0); Nucleated Red Blood Cells % 0.1 %; Red Blood Cells 5.37 10^6/uL (4.0-5.20); Red Cell Distribution Width 14.2 % (11.8-14.3); White Blood Cell 9.8 10^3/uL (4.4-10.8)
[2021-09-07 06:44] LABS: BUN/Creatinine Ratio 47.5; Calcium 9.3 mg/dL (8.5-10.1); Potassium 4.2 mmol/L (3.5-5.1)
[2021-09-07] MEDS: traMADol HCL 50 MG TAB PO PRN (10:12)
[2021-09-07] MEDS: ERTAPENEM SOD INJ 1 GM in SODIUM CHL 0.9% 50 ML IV SCH (10:12)
[2021-09-07] MEDS: FAMOTIDINE 20 MG TAB PO SCH (10:12)
[2021-09-07] MEDS: CHOLECALCIFEROL (VITD3) 2,000 UNIT CAP/TAB PO SCH (10:12)
[2021-09-07] MEDS: ENOXAPARIN SOD 40 MG/0.4 ML SYRINGE SC SCH (10:13)
[2021-09-08 05:00] VITALS: BP 117/60
[2021-09-08] MEDS: IPRATROPIUM BROM 0.5 MG/2.5ML INH SOL NEB PRN (06:44)
[2021-09-08] MEDS: ALBUTEROL SULF 2.5 MG/0.5ML(0.5%) NEB SOLN NEB PRN (06:44)
[2021-09-08 09:00] VITALS: BP 117/54
[2021-09-08] MEDS ORDERED: ERTAPENEM SOD INJ 0.5 GM in SODIUM CHL 0.9% 50 ML IV SCH (10:00)
[2021-09-08] MEDS: FAMOTIDINE 20 MG TAB PO SCH (10:30)
[2021-09-08] MEDS: ENOXAPARIN SOD 40 MG/0.4 ML SYRINGE SC SCH (10:30)
[2021-09-08] MEDS: CHOLECALCIFEROL (VITD3) 2,000 UNIT CAP/TAB PO SCH (10:30)
[2021-09-08 13:00] VITALS: BP 129/61
[2021-09-08 17:00] VITALS: BP 120/65
== END 2021-09-08 18:46 | disposition home health service (06) | DRG 871 ==
LOC: ER 02:31 → EDBD 02:31 → TELE 08:54 → TELE-WESTW 09-03 21:28
PROVIDERS: ADMIT Internal Medicine; ATTEND Internal Medicine
PROC: 05HB33Z Insertion of Infusion Device into Right Basilic Vein, Percutaneous Approach (ICD-10-PCS; principal; 2021-09-03)
PROC: B54MZZA Ultrasonography of Right Upper Extremity Veins, Guidance (ICD-10-PCS; 2021-09-03)
DX: A41.51 Sepsis due to Escherichia coli [E. coli] (principal); J96.21 Acute and chronic respiratory failure with hypoxia; N17.0 Acute kidney failure with tubular necrosis; J44.1 Chronic obstructive pulmonary disease with (acute) exacerbation; N12 Tubulo-interstitial nephritis, not specified as acute or chronic; Z16.12 Extended spectrum beta lactamase (ESBL) resistance; E78.5 Hyperlipidemia, unspecified; N18.9 Chronic kidney disease, unspecified; F17.210 Nicotine dependence, cigarettes, uncomplicated; I95.9 Hypotension, unspecified; E86.0 Dehydration; Z20.822 Contact with and (suspected) exposure to COVID-19; I12.9 Hypertensive chronic kidney disease with stage 1 through stage 4 chronic kidney disease, or unspecified chronic kidney disease; I48.91 Unspecified atrial fibrillation; Z80.8 Family history of malignant neoplasm of other organs or systems; Z83.3 Family history of diabetes mellitus; Z90.710 Acquired absence of both cervix and uterus; Z90.49 Acquired absence of other specified parts of digestive tract
CPT/HCPCS: 36415; 36600; 71045; 80048; 80053; 81001; 82805; 83605; 83735; 83880; 84484; 85025; 86141; 87040; 87077; 87086; 87088; 87186; 87426; 93005; 93306; 94060; 94640; 96365; 96366; 96367; 96368; 96372; 96375; 97163; G0378; J0696; J1100; J1335; J2405; J2543; J3490; J7060

== ENCOUNTER → 2022-03-12 | Outpatient (CLI) | payer MEDICARE, OTHER ==
[~2022-03-12] MED LIST changes: +FERR-20 PO; +FOLI1TAB6 PO; +PANT40T PO
== END | disposition home or self-care (01) ==
LOC: XYW 14:41
PROVIDERS: ATTEND Internal Medicine
DX: Z01.810 Encounter for preprocedural cardiovascular examination (principal); H26.8 Other specified cataract
CPT/HCPCS: 93306

== ENCOUNTER → 2022-03-13 | Outpatient (CLI) | payer MEDICARE, OTHER ==
[~2022-03-13] MED LIST changes: +REGADENOSON 0.4 MG/5 ML SYRG IV ONE
[2022-03-13 10:45] VITALS: BP 116/66
== END | disposition home or self-care (01) ==
LOC: XYW 09:28
PROVIDERS: ATTEND Internal Medicine
DX: Z01.810 Encounter for preprocedural cardiovascular examination (principal); J44.9 Chronic obstructive pulmonary disease, unspecified; I10 Essential (primary) hypertension; E78.5 Hyperlipidemia, unspecified; Z72.0 Tobacco use; D64.9 Anemia, unspecified; I31.3 Pericardial effusion (noninflammatory); H26.8 Other specified cataract; Z79.899 Other long term (current) drug therapy
CPT/HCPCS: 78452; 93017; A9500; J2785

== ENCOUNTER → 2022-03-15 | Outpatient (CLI) | payer MEDICARE, OTHER ==
[~2022-03-15] MED LIST changes: -REGADENOSON 0.4 MG/5 ML SYRG IV ONE
[2022-03-15 10:08] LABS: Basophils # (auto) 0 10 ^3/uL (0-0.2); Basophils % (auto) 0.4 % (0.0-2.0); Eosinophils # (auto) 0.1 10 ^3/uL (0-0.8); Eosinophils % (auto) 2.2 % (0.0-7.0); Hematocrit 40.1 % (36.0-46.0); Hemoglobin 13.3 g/dL (12.2-16.2); Lymphocytes # (auto) 1.1 10 ^3/uL (0.4-5.4); Lymphocytes % (auto) 18.5 % (10.0-50.0); Mean Corpuscular Hemoglobin 28.9 pg (28.0-32.0); Mean Corpuscular Hgb Conc. 33.1 g/dL (32.0-36.0); Mean Corpuscular Volume 87.3 fL (80.0-100.0); Monocytes # (auto) 0.4 10 ^3/uL (0-1.3); Monocytes % (auto) 6.9 % (0.0-12.0); Neutrophils # (auto) 4.3 10 ^3/uL (1.6-8.6); Nucleated Red Blood Cells % 0.1 %; Red Blood Cells 4.59 10^6/uL (4.0-5.20); Red Cell Distribution Width 16.1 % (11.8-14.3)
[2022-03-15 10:11] LABS: INR 1.02 (0.9-1.15); Partial Thromboplastin Time 25.9 sec (23.6-33.0)
[2022-03-15 10:16] LABS: Urine Blood Negative /uL (Negative); Urine Specific Gravity 1.018 (1.001-1.035)
[2022-03-15 10:20] LABS: Albumin 3.9 g/dL (3.4-5.0); Calcium 9.6 mg/dL (8.5-10.1); Potassium 4.7 mmol/L (3.5-5.1)
[2022-03-15 10:24] LABS: Bilirubin, Total 0.6 mg/dL (0.2-1.0); Total Protein 7.4 g/dL (6.4-8.2)
== END | disposition home or self-care (01) ==
LOC: LAB 09:23
PROVIDERS: ATTEND Specialist
DX: Z01.812 Encounter for preprocedural laboratory examination (principal); H25.12 Age-related nuclear cataract, left eye; D68.9 Coagulation defect, unspecified; Z79.01 Long term (current) use of anticoagulants
CPT/HCPCS: 36415; 80053; 81003; 85025; 85610; 85730

== ENCOUNTER → 2022-05-15 | Outpatient (CLI) | payer MEDICARE, OTHER ==
[2022-05-15 09:08] LABS: Urine Blood Negative /uL (Negative); Urine Specific Gravity 1.015 (1.001-1.035)
[2022-05-15 09:11] LABS: Basophils # (auto) 0 10 ^3/uL (0-0.2); Basophils % (auto) 0.4 % (0.0-2.0); Eosinophils # (auto) 0.1 10 ^3/uL (0-0.8); Eosinophils % (auto) 2.3 % (0.0-7.0); Hematocrit 41.5 % (36.0-46.0); Hemoglobin 13.7 g/dL (12.2-16.2); Lymphocytes # (auto) 1.1 10 ^3/uL (0.4-5.4); Lymphocytes % (auto) 19.9 % (10.0-50.0); Mean Corpuscular Hemoglobin 29.1 pg (28.0-32.0); Mean Corpuscular Hgb Conc. 33.1 g/dL (32.0-36.0); Mean Corpuscular Volume 87.9 fL (80.0-100.0); Monocytes # (auto) 0.3 10 ^3/uL (0-1.3); Monocytes % (auto) 6.3 % (0.0-12.0); Neutrophils # (auto) 3.9 10 ^3/uL (1.6-8.6); Neutrophils % (auto) 71.1 % (37.0-80.0); Red Blood Cells 4.72 10^6/uL (4.0-5.20); Red Cell Distribution Width 15.1 % (11.8-14.3); White Blood Cell 5.5 10^3/uL (4.4-10.8)
[2022-05-15 09:31] LABS: INR 1.03 (0.9-1.15); Partial Thromboplastin Time 27.2 sec (23.6-33.0)
[2022-05-15 09:37] LABS: Potassium 5.3 mmol/L (3.5-5.1)
[2022-05-15 09:44] LABS: BUN/Creatinine Ratio 35.8; Bilirubin, Total 0.6 mg/dL (0.2-1.0); Calcium 9.5 mg/dL (8.5-10.1); Total Protein 7.3 g/dL (6.4-8.2)
== END | disposition home or self-care (01) ==
LOC: LAB 08:42
DX: H25.10 Age-related nuclear cataract, unspecified eye (principal); D68.1 Hereditary factor XI deficiency; Z01.812 Encounter for preprocedural laboratory examination; Z79.01 Long term (current) use of anticoagulants
CPT/HCPCS: 36415; 80053; 81003; 85025; 85610; 85730

== ENCOUNTER 2022-07-29 13:56 | Inpatient (IN) | payer MEDICARE, OTHER ==
[~2022-07-29] VITALS: Ht 165.1 cm; Wt 55.7 kg
[2022-07-29 15:56] LABS: Basophils # (auto) 0 10 ^3/uL (0-0.2); Basophils % (auto) 0.2 % (0.0-2.0); Eosinophils # (auto) 0.1 10 ^3/uL (0-0.8); Eosinophils % (auto) 0.8 % (0.0-7.0); Hematocrit 45.2 % (36.0-46.0); Hemoglobin 14.5 g/dL (12.2-16.2); Lymphocytes # (auto) 0.8 10 ^3/uL (0.4-5.4); Lymphocytes % (auto) 10.3 % (10.0-50.0); Mean Corpuscular Hemoglobin 27.8 pg (28.0-32.0); Mean Corpuscular Volume 86.9 fL (80.0-100.0); Monocytes # (auto) 0.2 10 ^3/uL (0-1.3); Monocytes % (auto) 2.6 % (0.0-12.0); Neutrophils # (auto) 6.9 10 ^3/uL (1.6-8.6); Neutrophils % (auto) 86.1 % (37.0-80.0); Nucleated Red Blood Cells % 0.1 %; Red Cell Distribution Width 14.7 % (11.8-14.3)
[2022-07-29 16:15] LABS: Albumin 3.5 g/dL (3.4-5.0); Calcium 9.1 mg/dL (8.5-10.1); Potassium 5.4 mmol/L (3.5-5.1)
[2022-07-29 16:18] LABS: BUN/Creatinine Ratio 24.8; Bilirubin, Total 0.6 mg/dL (0.2-1.0); Total Protein 6.2 g/dL (6.4-8.2)
[2022-07-29 20:24] LABS: Urine Bacteria NONE SEEN /hpf (None Seen); Urine Blood Negative /uL (Negative); Urine Budding Yeast MANY /hpf (None Seen); Urine Hyaline Cast FEW /lpf (0 - 2); Urine WBC 17 /hpf (0 - 5)
[2022-07-29] MEDS ORDERED: ONDANSETRON HCL 4 MG/2 ML VIAL IV PRN (20:45)
[2022-07-29] MEDS ORDERED: NITROGLYCERIN 0.4 MG SL TAB SL PRN (20:45)
[2022-07-29] MEDS ORDERED: SODIUM ZIRCONIUM CYCL 10 GM PAK PO ONE (20:45)
[2022-07-29] MEDS ORDERED: MORPHINE SULFATE INJ 2 MG/ml SYRG IV PRN (20:45)
[2022-07-29] MEDS ORDERED: ACETAMINOPHEN 325 MG TAB PO PRN (20:45)
[2022-07-29] MEDS ORDERED: cefTRIAXone 1GM/50ML D5W 50 ML IV ONE (20:45)
[2022-07-29] MEDS ORDERED: SODIUM CHLORIDE 0.9% 500 ML IV ONE (20:45)
[2022-07-29] MEDS: SODIUM CHLORIDE 0.9% 1,000 ML IV SCH (23:21)
[2022-07-29] MEDS: ATORVASTATIN 20 MG TAB PO SCH (23:21)
[2022-07-30] MEDS ORDERED: diphenhdrAMINE HCL 25 MG CAP PO ONE (01:00)
[2022-07-30] MEDS ORDERED: FAMOTIDINE (10MG/ML) 2ML VL IV ONE (01:15)
[2022-07-30] MEDS ORDERED: methylPREDNISolone SOD SUCC 125 MG/2 ML VL IV ONE (01:15)
[2022-07-30 05:33] LABS: BUN/Creatinine Ratio 32.8; Calcium 8.8 mg/dL (8.5-10.1); Potassium 4.9 mmol/L (3.5-5.1)
[2022-07-30 05:35] LABS: Basophils # (auto) 0 10 ^3/uL (0-0.2); Basophils % (auto) 0.1 % (0.0-2.0); Eosinophils # (auto) 0 10 ^3/uL (0-0.8); Eosinophils % (auto) 0.1 % (0.0-7.0); Hematocrit 43.5 % (36.0-46.0); Lymphocytes # (auto) 0.5 10 ^3/uL (0.4-5.4); Lymphocytes % (auto) 5.1 % (10.0-50.0); Mean Corpuscular Hemoglobin 28.1 pg (28.0-32.0); Mean Corpuscular Hgb Conc. 32.3 g/dL (32.0-36.0); Mean Corpuscular Volume 86.9 fL (80.0-100.0); Monocytes # (auto) 0.2 10 ^3/uL (0-1.3); Monocytes % (auto) 1.5 % (0.0-12.0); Neutrophils # (auto) 9.2 10 ^3/uL (1.6-8.6); Neutrophils % (auto) 93.2 % (37.0-80.0); Red Blood Cells 5.01 10^6/uL (4.0-5.20); Red Cell Distribution Width 14.4 % (11.8-14.3); White Blood Cell 9.9 10^3/uL (4.4-10.8)
[2022-07-30] MEDS: SODIUM CHLORIDE 0.9% 1,000 ML IV SCH ×2 (10:05→23:11)
[2022-07-30] MEDS: PANTOPRAZOLE 40 MG TAB PO SCH (10:06)
[2022-07-30] MEDS ORDERED: SIMV-13 PO (15:07)
[2022-07-30 17:00] VITALS: BP 110/58
[2022-07-30] MEDS ORDERED: ASPI-543 PO (20:37)
[2022-07-30] MEDS ORDERED: ASCO500T11 PO (20:38)
[2022-07-30] MEDS ORDERED: ZINC220C8 PO (20:39)
[2022-07-30] MEDS ORDERED: CALC667C PO (20:39)
[2022-07-30] MEDS ORDERED: MAGN400T40 PO (20:39)
[2022-07-30] MEDS ORDERED: UMEC1AER IN (20:41)
[2022-07-30] MEDS: ATORVASTATIN 20 MG TAB PO SCH (21:19)
[2022-07-30 21:49] VITALS: BP 115/44
[2022-07-30] MEDS ORDERED: cefTRIAXone 1GM/50ML D5W 50 ML IV SCH (22:00)
[2022-07-31] VITALS (7 sets, daily range): BP systolic 114–142; BP diastolic 47–84
[2022-07-31] MEDS: PANTOPRAZOLE 40 MG TAB PO SCH (10:51)
[2022-07-31] MEDS: SODIUM CHLORIDE 0.9% 1,000 ML IV SCH (11:41)
[2022-07-31] MEDS ORDERED: diphenhdrAMINE HCL 50 MG/1 ML VL IV ONE (13:45)
[2022-07-31] MEDS ORDERED: predniSONE 20 MG TAB PO ONE (13:45)
[2022-07-31] MEDS ORDERED: INVANZ IM (15:19)
[2022-07-31] MEDS ORDERED: ALBUTEROL SULF 2.5 MG/0.5ML(0.5%) NEB SOLN NEB PRN (15:45)
[2022-07-31] MEDS: ATORVASTATIN 20 MG TAB PO SCH (22:13)
[2022-08-01] MEDS: SODIUM CHLORIDE 0.9% 1,000 ML IV SCH (02:05)
[2022-08-01 05:00] VITALS: BP 131/65
[2022-08-01 08:00] VITALS: BP 146/66
[2022-08-01 08:30] VITALS: BP 146/66
[2022-08-01] MEDS: PANTOPRAZOLE 40 MG TAB PO SCH (08:59)
[2022-08-01] MEDS ORDERED: FLUCONAZOLE 100 MG TAB PO SCH (10:00)
[2022-08-01 12:45] VITALS: BP 169/80
[2022-08-01] MEDS ORDERED: FLUC200T50 PO (14:47)
[2022-08-01 16:20] VITALS: BP 149/73
== END 2022-08-01 18:05 | disposition home or self-care (01) | DRG 683 ==
LOC: EDBD 13:56 → ER 13:56 → TELE 20:39 → TELE-EAST 07-30 16:53
PROVIDERS: ADMIT Nurse Practitioner; ATTEND Internal Medicine Nephrology
DX: N17.9 Acute kidney failure, unspecified (principal); J96.11 Chronic respiratory failure with hypoxia; N39.0 Urinary tract infection, site not specified; E87.5 Hyperkalemia; E11.22 Type 2 diabetes mellitus with diabetic chronic kidney disease; I12.9 Hypertensive chronic kidney disease with stage 1 through stage 4 chronic kidney disease, or unspecified chronic kidney disease; I48.91 Unspecified atrial fibrillation; E78.5 Hyperlipidemia, unspecified; F17.210 Nicotine dependence, cigarettes, uncomplicated; J44.9 Chronic obstructive pulmonary disease, unspecified; Z20.822 Contact with and (suspected) exposure to COVID-19; N18.31 Chronic kidney disease, stage 3a; Z80.8 Family history of malignant neoplasm of other organs or systems; Z86.73 Personal history of transient ischemic attack (TIA), and cerebral infarction without residual deficits; Z90.710 Acquired absence of both cervix and uterus; Z88.0 Allergy status to penicillin; Z90.49 Acquired absence of other specified parts of digestive tract; R55 Syncope and collapse; T36.95XA Adverse effect of unspecified systemic antibiotic, initial encounter; L50.0 Allergic urticaria
CPT/HCPCS: 36415; 36600; 70450; 71045; 74176; 80048; 80053; 81001; 82805; 82962; 84484; 85025; 87086; 87088; 87186; 93005; 96365; 96375; G0378; J0696; J3490

== ENCOUNTER → 2022-11-01 | Outpatient (CLI) | payer MEDICARE, OTHER ==
[~2022-11-01] MED LIST changes: -ALB5IS NEB; +ASPI-543 PO; +CALC667C PO; -DOXY-112 PO; -FERR-20 PO; +FLUC200T50 PO; -FLUT250M2 IN; -FOLI1TAB6 PO; -METH4PAK PO; -PANT40T PO; +SIMV-13 PO; -SIMV-8 PO; +UMEC1AER IN
[2022-11-01 07:29] LABS: Urine Bacteria MOD /hpf (None Seen); Urine Blood Negative /uL (Negative); Urine Hyaline Cast FEW /lpf (0 - 2); Urine WBC 244 /hpf (0 - 5); Urine WBC Clumps PRESENT /hpf (None Seen)
== END | disposition home or self-care (01) ==
LOC: LAB 06:24
PROVIDERS: ATTEND Urology
DX: N39.0 Urinary tract infection, site not specified (principal)
CPT/HCPCS: 81001; 87086

== ENCOUNTER 2022-11-21 13:49 | Inpatient (IN) | payer MEDICARE, OTHER ==
[~2022-11-21] VITALS: Ht 165.1 cm; Wt 49.0 kg
[2022-11-21] MEDS ORDERED: SODIUM CHLORIDE 0.9% 1,000 ML IV ONE (14:30)
[2022-11-21] MEDS ORDERED: IPRATROPIUM BROM 0.5 MG/2.5ML INH SOL NEB ONE (14:45)
[2022-11-21] MEDS ORDERED: methylPREDNISolone SOD SUCC 125 MG/2 ML VL IV ONE (14:45)
[2022-11-21] MEDS ORDERED: ALBUTEROL SULF 2.5 MG/0.5ML(0.5%) NEB SOLN NEB ONE (14:45)
[2022-11-21 16:52] LABS: Basophils # (auto) 0 10 ^3/uL (0-0.2); Basophils % (auto) 0.6 % (0.0-2.0); Eosinophils # (auto) 0.1 10 ^3/uL (0-0.8); Eosinophils % (auto) 1.7 % (0.0-7.0); Hematocrit 38.6 % (36.0-46.0); Hemoglobin 12.8 g/dL (12.2-16.2); Lymphocytes # (auto) 0.6 10 ^3/uL (0.4-5.4); Mean Corpuscular Hemoglobin 29.3 pg (28.0-32.0); Mean Corpuscular Hgb Conc. 33.2 g/dL (32.0-36.0); Mean Corpuscular Volume 88.4 fL (80.0-100.0); Monocytes # (auto) 0.3 10 ^3/uL (0-1.3); Monocytes % (auto) 6.2 % (0.0-12.0); Neutrophils # (auto) 3.6 10 ^3/uL (1.6-8.6); Neutrophils % (auto) 78.5 % (37.0-80.0); Nucleated Red Blood Cells % 0.1 %; Red Blood Cells 4.36 10^6/uL (4.0-5.20); White Blood Cell 4.6 10^3/uL (4.4-10.8)
[2022-11-21] MEDS: SODIUM CHLORIDE 0.9% 1,000 ML IV SCH (17:15)
[2022-11-21] MEDS ORDERED: PANTOPRAZOLE 40 MG/10 ML VIAL INJ IV ONE (17:15)
[2022-11-21] MEDS ORDERED: NITROGLYCERIN 0.4 MG SL TAB SL PRN (17:15)
[2022-11-21] MEDS ORDERED: ACETAMINOPHEN 325 MG TAB PO PRN (17:15)
[2022-11-21] MEDS ORDERED: MORPHINE SULFATE INJ 2 MG/ml SYRG IV PRN (17:15)
[2022-11-21 17:23] LABS: Calcium 8.3 mg/dL (8.5-10.1); Potassium 4.6 mmol/L (3.5-5.1)
[2022-11-21 17:25] LABS: BUN/Creatinine Ratio 29.2
[2022-11-21] MEDS ORDERED: ASPirin 325 MG TAB PO ONE (17:30)
[2022-11-21 17:32] LABS: Bilirubin, Total 0.2 mg/dL (0.2-1.0); Total Protein 5.3 g/dL (6.4-8.2)
[2022-11-21] MEDS ORDERED: ALBUTEROL MEDNEB 2.5 mg/3ml NEB NEB PRN (17:45)
[2022-11-21] MEDS: IPRATROPIUM BROM 0.5 MG/2.5ML INH SOL NEB SCH (18:00)
[2022-11-21] MEDS: ALBUTEROL MEDNEB 2.5 mg/3ml NEB NEB SCH (18:00)
[2022-11-21 18:20] LABS: Cholesterol 133 mg/dL (< 200); HDL Cholesterol 57 mg/dL (40-59); LDL Cholesterol 61 mg/dL (< 100); Triglycerides 137 mg/dL (< 150)
[2022-11-21 18:26] LABS: Urine Bacteria NONE SEEN /hpf (None Seen); Urine Blood Negative /uL (Negative); Urine Specific Gravity 1.018 (1.001-1.035); Urine WBC 15 /hpf (0 - 5)
[2022-11-21 18:37] LABS: Alcohol, Urine < 3.0 mg/dL (0-10); Amphetamine Screen, Urine NEGATIVE (NEGATIVE); Barbiturate Scree,Urine NEGATIVE (NEGATIVE); Benzodiazephine Screen, Urine NEGATIVE (NEGATIVE); Cannabinoid Screen, Urine NEGATIVE (NEGATIVE); Cocaine Screen, Urine NEGATIVE (NEGATIVE); Opiate Scree,Urine NEGATIVE (NEGATIVE); Phencyclidine Screen, Urine NEGATIVE (NEGATIVE)
[2022-11-21] MEDS: CALCIUM ACETATE 667 MG CAP PO SCH (20:07)
[2022-11-21] MEDS: ATORVASTATIN 20 MG TAB PO SCH (22:46)
[2022-11-21 23:00] VITALS: BP 150/76
[2022-11-22] VITALS (9 sets, daily range): BP systolic 99–150; BP diastolic 55–76
[2022-11-22] MEDS: IPRATROPIUM BROM 0.5 MG/2.5ML INH SOL NEB SCH ×4 (01:12→18:21)
[2022-11-22] MEDS: ALBUTEROL MEDNEB 2.5 mg/3ml NEB NEB SCH ×4 (01:12→18:21)
[2022-11-22 06:21] LABS: Basophils # (auto) 0 10 ^3/uL (0-0.2); Eosinophils # (auto) 0 10 ^3/uL (0-0.8); Hematocrit 37.8 % (36.0-46.0); Hemoglobin 12.4 g/dL (12.2-16.2); Lymphocytes # (auto) 0.4 10 ^3/uL (0.4-5.4); Lymphocytes % (auto) 8.3 % (10.0-50.0); Mean Corpuscular Hemoglobin 28.7 pg (28.0-32.0); Mean Corpuscular Hgb Conc. 32.7 g/dL (32.0-36.0); Mean Corpuscular Volume 87.8 fL (80.0-100.0); Monocytes # (auto) 0.1 10 ^3/uL (0-1.3); Monocytes % (auto) 2.4 % (0.0-12.0); Neutrophils # (auto) 4.2 10 ^3/uL (1.6-8.6); Neutrophils % (auto) 89.3 % (37.0-80.0); Nucleated Red Blood Cells % 0.1 %; Red Blood Cells 4.31 10^6/uL (4.0-5.20); Red Cell Distribution Width 14.4 % (11.8-14.3); White Blood Cell 4.7 10^3/uL (4.4-10.8)
[2022-11-22] MEDS: CALCIUM ACETATE 667 MG CAP PO SCH ×3 (08:34→18:04)
[2022-11-22] MEDS: METOPROLOL TARTRATE 25 MG TAB PO SCH (09:04)
[2022-11-22] MEDS: ASPirin-EC 81 mg tab PO SCH (09:05)
[2022-11-22] MEDS ORDERED: IOHEXOL 350 MG/ML 100ML IJ ONE (09:14)
[2022-11-22] MEDS: SODIUM CHLORIDE 0.9% 1,000 ML IV SCH (09:55)
[2022-11-22] MEDS ORDERED: ENOXAPARIN SOD 40 MG/0.4 ML SYRINGE SC SCH (10:00)
[2022-11-22] MEDS ORDERED: LOSARTAN POTASSIUM 50 MG TAB PO SCH (10:00)
[2022-11-22] MEDS ORDERED: ASPirin 81 mg TAB PO SCH (10:00)
[2022-11-22] MEDS ORDERED: PANTOPRAZOLE 40 MG/10 ML VIAL INJ IV SCH (10:00)
[2022-11-22] MEDS ORDERED: AZITHROMYCIN 250 MG TAB PO ONE (12:45)
[2022-11-22] MEDS ORDERED: predniSONE 20 MG TAB PO ONE (12:45)
[2022-11-22] MEDS ORDERED: ALBUTEROL MEDNEB 2.5 mg/3ml NEB NEB PRN (12:45)
[2022-11-22] MEDS ORDERED: cefTRIAXone 1GM/50ML D5W 50 ML IV ONE (13:00)
[2022-11-22] MEDS: ATORVASTATIN 20 MG TAB PO SCH (22:36)
[2022-11-23] MEDS: ALBUTEROL MEDNEB 2.5 mg/3ml NEB NEB SCH ×4 (00:35→21:53)
[2022-11-23] MEDS: IPRATROPIUM BROM 0.5 MG/2.5ML INH SOL NEB SCH ×4 (00:35→21:53)
[2022-11-23] MEDS: SODIUM CHLORIDE 0.9% 1,000 ML IV SCH (02:35)
[2022-11-23 05:00] VITALS: BP 137/55
[2022-11-23 06:01] LABS: Basophils # (auto) 0 10 ^3/uL (0-0.2); Basophils % (auto) 0.1 % (0.0-2.0); Eosinophils # (auto) 0 10 ^3/uL (0-0.8); Eosinophils % (auto) 0.1 % (0.0-7.0); Hematocrit 36.8 % (36.0-46.0); Hemoglobin 12.3 g/dL (12.2-16.2); Lymphocytes # (auto) 0.8 10 ^3/uL (0.4-5.4); Lymphocytes % (auto) 13.8 % (10.0-50.0); Mean Corpuscular Hemoglobin 28.9 pg (28.0-32.0); Mean Corpuscular Hgb Conc. 33.3 g/dL (32.0-36.0); Mean Corpuscular Volume 86.6 fL (80.0-100.0); Monocytes # (auto) 0.3 10 ^3/uL (0-1.3); Monocytes % (auto) 4.7 % (0.0-12.0); Neutrophils # (auto) 4.9 10 ^3/uL (1.6-8.6); Neutrophils % (auto) 81.3 % (37.0-80.0); Red Blood Cells 4.25 10^6/uL (4.0-5.20); Red Cell Distribution Width 14.6 % (11.8-14.3)
[2022-11-23 06:37] LABS: Calcium 9.1 mg/dL (8.5-10.1)
[2022-11-23 06:39] LABS: BUN/Creatinine Ratio 34.9; Potassium 4.7 mmol/L (3.5-5.1)
[2022-11-23 08:00] VITALS: BP 128/52
[2022-11-23] MEDS: CALCIUM ACETATE 667 MG CAP PO SCH ×3 (08:16→18:00)
[2022-11-23] MEDS: cefTRIAXone 1GM/50ML D5W 50 ML IV SCH (08:25)
[2022-11-23] MEDS: ASPirin-EC 81 mg tab PO SCH (10:15)
[2022-11-23] MEDS: METOPROLOL TARTRATE 25 MG TAB PO SCH (10:16)
[2022-11-23] MEDS: FAMOTIDINE 20 MG TAB PO SCH (10:16)
[2022-11-23] MEDS: AZITHROMYCIN 250 MG TAB PO SCH (10:16)
[2022-11-23] MEDS: predniSONE 20 MG TAB PO SCH (10:17)
[2022-11-23 12:00] VITALS: BP 149/68
[2022-11-23 16:00] VITALS: BP 136/64
[2022-11-23 20:00] VITALS: BP 115/61
[2022-11-23 22:00] VITALS: BP 115/61
[2022-11-23] MEDS: ATORVASTATIN 20 MG TAB PO SCH (22:03)
[2022-11-24 05:00] VITALS: BP 119/57
[2022-11-24] MEDS: ALBUTEROL MEDNEB 2.5 mg/3ml NEB NEB SCH ×4 (07:16→19:13)
[2022-11-24] MEDS: IPRATROPIUM BROM 0.5 MG/2.5ML INH SOL NEB SCH ×4 (07:17→19:13)
[2022-11-24 08:00] VITALS: BP 152/70
[2022-11-24] MEDS: CALCIUM ACETATE 667 MG CAP PO SCH ×3 (08:00→18:00)
[2022-11-24] MEDS: cefTRIAXone 1GM/50ML D5W 50 ML IV SCH (08:47)
[2022-11-24] MEDS: ASPirin-EC 81 mg tab PO SCH (10:00)
[2022-11-24] MEDS: FAMOTIDINE 20 MG TAB PO SCH (10:00)
[2022-11-24] MEDS: AZITHROMYCIN 250 MG TAB PO SCH (10:00)
[2022-11-24] MEDS: predniSONE 20 MG TAB PO SCH (10:00)
[2022-11-24] MEDS: METOPROLOL TARTRATE 25 MG TAB PO SCH (10:00)
[2022-11-24 12:00] VITALS: BP 124/56
[2022-11-24 16:00] VITALS: BP 135/66
[2022-11-24] MEDS: ATORVASTATIN 20 MG TAB PO SCH (21:29)
[2022-11-24 22:00] VITALS: BP 113/53
[2022-11-25] VITALS (7 sets, daily range): BP systolic 105–155; BP diastolic 54–92
[2022-11-25] MEDS: IPRATROPIUM BROM 0.5 MG/2.5ML INH SOL NEB SCH ×4 (00:23→19:12)
[2022-11-25] MEDS: ALBUTEROL MEDNEB 2.5 mg/3ml NEB NEB SCH ×4 (00:23→19:12)
[2022-11-25] MEDS: cefTRIAXone 1GM/50ML D5W 50 ML IV SCH (09:30)
[2022-11-25] MEDS: CALCIUM ACETATE 667 MG CAP PO SCH ×3 (09:32→18:00)
[2022-11-25] MEDS: ASPirin-EC 81 mg tab PO SCH (09:32)
[2022-11-25] MEDS: predniSONE 20 MG TAB PO SCH (09:32)
[2022-11-25] MEDS: FAMOTIDINE 20 MG TAB PO SCH (09:32)
[2022-11-25] MEDS: AZITHROMYCIN 250 MG TAB PO SCH (09:36)
[2022-11-25] MEDS: METOPROLOL TARTRATE 25 MG TAB PO SCH (09:36)
[2022-11-25] MEDS: ATORVASTATIN 20 MG TAB PO SCH (22:11)
[2022-11-26 05:00] VITALS: BP 134/76
[2022-11-26] MEDS: ALBUTEROL MEDNEB 2.5 mg/3ml NEB NEB SCH ×2 (06:29→11:47)
[2022-11-26] MEDS: IPRATROPIUM BROM 0.5 MG/2.5ML INH SOL NEB SCH ×2 (06:29→11:47)
[2022-11-26] MEDS: CALCIUM ACETATE 667 MG CAP PO SCH ×2 (08:17→12:13)
[2022-11-26 09:00] VITALS: BP 111/53
[2022-11-26] MEDS: cefTRIAXone 1GM/50ML D5W 50 ML IV SCH (09:23)
[2022-11-26] MEDS: AZITHROMYCIN 250 MG TAB PO SCH (09:24)
[2022-11-26] MEDS: METOPROLOL TARTRATE 25 MG TAB PO SCH (09:26)
[2022-11-26] MEDS: predniSONE 20 MG TAB PO SCH (09:26)
[2022-11-26] MEDS: ASPirin-EC 81 mg tab PO SCH (09:27)
[2022-11-26] MEDS: FAMOTIDINE 20 MG TAB PO SCH (09:27)
[2022-11-26] MEDS ORDERED: PRED20TA2 PO (11:49)
[2022-11-26] MEDS ORDERED: AZIT250T9 PO (11:49)
[2022-11-26] MEDS ORDERED: CITA10TA8 PO (11:54)
[2022-11-26] MEDS ORDERED: LOSARTAN POTASSIUM 50 MG TAB PO ONE (12:30)
[2022-11-26 13:00] VITALS: BP 169/76
[2022-11-26 13:04] VITALS: BP 123/67
== END 2022-11-26 13:20 | disposition home health service (06) | DRG 189 ==
LOC: EDBD 13:49 → ER 13:49 → TELE 17:18 → TELE-WESTW 22:20
PROVIDERS: ADMIT Nurse Practitioner Family; ATTEND Internal Medicine
DX: J96.20 Acute and chronic respiratory failure, unspecified whether with hypoxia or hypercapnia (principal); J44.1 Chronic obstructive pulmonary disease with (acute) exacerbation; E46 Unspecified protein-calorie malnutrition; N39.0 Urinary tract infection, site not specified; I48.91 Unspecified atrial fibrillation; E83.51 Hypocalcemia; E78.5 Hyperlipidemia, unspecified; N18.9 Chronic kidney disease, unspecified; D64.9 Anemia, unspecified; F17.210 Nicotine dependence, cigarettes, uncomplicated; Z20.822 Contact with and (suspected) exposure to COVID-19; I65.22 Occlusion and stenosis of left carotid artery; I12.9 Hypertensive chronic kidney disease with stage 1 through stage 4 chronic kidney disease, or unspecified chronic kidney disease; Z68.20 Body mass index [BMI] 20.0-20.9, adult; Z88.0 Allergy status to penicillin; Z83.3 Family history of diabetes mellitus; Z90.710 Acquired absence of both cervix and uterus; Z90.49 Acquired absence of other specified parts of digestive tract; K44.9 Diaphragmatic hernia without obstruction or gangrene
CPT/HCPCS: 36415; 70450; 71045; 71275; 80048; 80053; 80061; 80307; 81001; 83036; 83880; 84443; 84484; 85025; 85379; 87086; 87426; 93005; 93306; 93886; 94640; 96361; 96374; 97110; 97116; 97163; 97530; C9113; G0378; J0696

== ENCOUNTER → 2022-12-27 | Outpatient (CLI) | payer MEDICARE, OTHER ==
[~2022-12-27] MED LIST changes: +AZIT250T9 PO; +CITA10TA8 PO; +PRED20TA2 PO
== END | disposition home or self-care (01) ==
LOC: LAB 06:03
PROVIDERS: ATTEND Urology
DX: N39.0 Urinary tract infection, site not specified (principal)
CPT/HCPCS: 87086; 87088; 87186

== ENCOUNTER → 2023-01-03 | Outpatient (CLI) | payer MEDICARE, OTHER ==
[2023-01-03 08:11] LABS: Urine Bacteria NONE SEEN /hpf (None Seen); Urine Blood Negative /uL (Negative); Urine Specific Gravity 1.018 (1.001-1.035); Urine WBC 2 /hpf (0 - 5)
== END | disposition home or self-care (01) ==
LOC: LAB 06:40
PROVIDERS: ATTEND Urology
DX: N39.9 Disorder of urinary system, unspecified (principal); Z79.899 Other long term (current) drug therapy
CPT/HCPCS: 81001; 87086

== ENCOUNTER 2023-02-22 22:17 | Inpatient (IN) | payer MEDICARE, OTHER ==
[~2023-02-22] VITALS: Ht 162.6 cm; Wt 52.1 kg
[2023-02-22 23:19] LABS: Basophils # (auto) 0 10 ^3/uL (0-0.2); Basophils % (auto) 0.2 % (0.0-2.0); Eosinophils # (auto) 0 10 ^3/uL (0-0.8); Eosinophils % (auto) 0.2 % (0.0-7.0); Hematocrit 34.2 % (36.0-46.0); Hemoglobin 11.1 g/dL (12.2-16.2); Lymphocytes # (auto) 0.5 10 ^3/uL (0.4-5.4); Lymphocytes % (auto) 7.1 % (10.0-50.0); Mean Corpuscular Hemoglobin 28.1 pg (28.0-32.0); Mean Corpuscular Hgb Conc. 32.5 g/dL (32.0-36.0); Mean Corpuscular Volume 86.6 fL (80.0-100.0); Monocytes # (auto) 0.6 10 ^3/uL (0-1.3); Monocytes % (auto) 9.7 % (0.0-12.0); Neutrophils # (auto) 5.4 10 ^3/uL (1.6-8.6); Neutrophils % (auto) 82.8 % (37.0-80.0); Nucleated Red Blood Cells % 0.2 %; Red Blood Cells 3.95 10^6/uL (4.0-5.20); Red Cell Distribution Width 16.2 % (11.8-14.3); White Blood Cell 6.5 10^3/uL (4.4-10.8)
[2023-02-22 23:32] LABS: Potassium 4.1 mmol/L (3.5-5.1)
[2023-02-22 23:43] LABS: Albumin 2.9 g/dL (3.4-5.0); BUN/Creatinine Ratio 26.7 (10.0-20.0); Bilirubin, Total 0.7 mg/dL (0.2-1.0); Calcium 8.8 mg/dL (8.5-10.1); Total Protein 6.3 g/dL (6.4-8.2)
[2023-02-23] MEDS ORDERED: MORPHINE SULFATE 4 MG/ML SYR/VIAL IV ONE (00:45)
[2023-02-23] MEDS ORDERED: ONDANSETRON HCL 4 MG/2 ML VIAL IV ONE (00:45)
[2023-02-23 06:35] LABS: Urine Bacteria NONE SEEN /hpf (None Seen); Urine Blood Negative /uL (Negative); Urine Specific Gravity 1.013 (1.001-1.035); Urine WBC <1 /hpf (0 - 5)
[2023-02-23] MEDS ORDERED: ACETAMINOPHEN 325 MG TAB PO PRN (07:30)
[2023-02-23] MEDS ORDERED: MORPHINE SULFATE INJ 2 MG/ml SYRG IV PRN ×2 (07:30)
[2023-02-23] MEDS ORDERED: SODIUM CHLORIDE 0.9% 1,000 ML IV SCH (07:30)
[2023-02-23] MEDS ORDERED: ONDANSETRON HCL 4 MG/2 ML VIAL IV PRN (07:30)
[2023-02-23] MEDS ORDERED: NITROGLYCERIN 0.4 MG SL TAB SL PRN (07:30)
[2023-02-23] MEDS ORDERED: HYDROcodone-ACET 5/325MG TAB PO PRN (07:30)
[2023-02-23] MEDS ORDERED: DOCUSATE SOD 100 MG CAP PO PRN (07:30)
[2023-02-23 08:00] LABS: Basophils # (auto) 0 10 ^3/uL (0-0.2); Basophils % (auto) 0.1 % (0.0-2.0); Eosinophils # (auto) 0 10 ^3/uL (0-0.8); Eosinophils % (auto) 0.7 % (0.0-7.0); Hematocrit 34.9 % (36.0-46.0); Hemoglobin 11.3 g/dL (12.2-16.2); Lymphocytes # (auto) 0.5 10 ^3/uL (0.4-5.4); Lymphocytes % (auto) 9.1 % (10.0-50.0); Mean Corpuscular Hemoglobin 28.2 pg (28.0-32.0); Mean Corpuscular Hgb Conc. 32.3 g/dL (32.0-36.0); Mean Corpuscular Volume 87.3 fL (80.0-100.0); Monocytes # (auto) 0.7 10 ^3/uL (0-1.3); Monocytes % (auto) 11.9 % (0.0-12.0); Neutrophils # (auto) 4.5 10 ^3/uL (1.6-8.6); Neutrophils % (auto) 78.2 % (37.0-80.0); Red Cell Distribution Width 16.4 % (11.8-14.3); White Blood Cell 5.8 10^3/uL (4.4-10.8)
[2023-02-23 08:12] LABS: Albumin 2.9 g/dL (3.4-5.0); Calcium 8.8 mg/dL (8.5-10.1); Potassium 4.2 mmol/L (3.5-5.1)
[2023-02-23 08:16] LABS: BUN/Creatinine Ratio 24.7 (10.0-20.0); Bilirubin, Total 0.9 mg/dL (0.2-1.0); Total Protein 6.2 g/dL (6.4-8.2)
[2023-02-23] MEDS: FAMOTIDINE (10MG/ML) 2ML VL IV SCH (09:04)
[2023-02-23] MEDS: ASPirin 81 mg TAB PO SCH (09:04)
[2023-02-23] MEDS: ENOXAPARIN SOD 30 MG/0.3 ML SYRINGE SC SCH (09:04)
[2023-02-23] MEDS: AZITHROMYCIN 500MG/ 250ML 250 ML IV SCH (09:05)
[2023-02-23] MEDS ORDERED: FUROSEMIDE 20 MG/2 ML VIAL IV ONE (10:15)
[2023-02-23] MEDS ORDERED: cefTRIAXone 1GM/50ML D5W 50 ML IV ONE (13:15)
[2023-02-23] MEDS: HALOPERIDOL LACTATE 5 MG/ML INJ VIAL IM PRN (14:32)
[2023-02-23] MEDS ORDERED: ATORVASTATIN 20 MG TAB PO SCH (22:00)
[2023-02-24] MEDS: HALOPERIDOL LACTATE 5 MG/ML INJ VIAL IM PRN (03:31)
[2023-02-24 06:05] LABS: Basophils # (auto) 0 10 ^3/uL (0-0.2); Basophils % (auto) 0.3 % (0.0-2.0); Eosinophils # (auto) 0 10 ^3/uL (0-0.8); Eosinophils % (auto) 0.5 % (0.0-7.0); Hematocrit 32.9 % (36.0-46.0); Hemoglobin 10.8 g/dL (12.2-16.2); Lymphocytes # (auto) 0.3 10 ^3/uL (0.4-5.4); Lymphocytes % (auto) 7.8 % (10.0-50.0); Mean Corpuscular Hemoglobin 28.1 pg (28.0-32.0); Mean Corpuscular Hgb Conc. 32.7 g/dL (32.0-36.0); Mean Corpuscular Volume 85.7 fL (80.0-100.0); Monocytes # (auto) 0.4 10 ^3/uL (0-1.3); Monocytes % (auto) 9.4 % (0.0-12.0); Neutrophils # (auto) 3.6 10 ^3/uL (1.6-8.6); Nucleated Red Blood Cells % 0.3 %; Red Blood Cells 3.84 10^6/uL (4.0-5.20); Red Cell Distribution Width 16.3 % (11.8-14.3); White Blood Cell 4.4 10^3/uL (4.4-10.8)
[2023-02-24 06:27] LABS: INR 1.02 (0.9-1.15); Partial Thromboplastin Time 29.3 sec (24.6-33.4)
[2023-02-24 06:32] LABS: Albumin 2.8 g/dL (3.4-5.0); Calcium 9.1 mg/dL (8.5-10.1); Potassium 3.9 mmol/L (3.5-5.1)
[2023-02-24 06:34] LABS: BUN/Creatinine Ratio 21.5 (10.0-20.0)
[2023-02-24 06:46] LABS: Bilirubin, Total 0.6 mg/dL (0.2-1.0); Total Protein 6.1 g/dL (6.4-8.2)
[2023-02-24] MEDS: cefTRIAXone 1GM/50ML D5W 50 ML IV SCH (09:00)
[2023-02-24] MEDS: FUROSEMIDE 20 MG/2 ML VIAL IV SCH (10:00)
[2023-02-24] MEDS: FAMOTIDINE (10MG/ML) 2ML VL IV SCH (10:00)
[2023-02-24] MEDS: ASPirin 81 mg TAB PO SCH (10:00)
[2023-02-24] MEDS: ENOXAPARIN SOD 30 MG/0.3 ML SYRINGE SC SCH (10:00)
[2023-02-24] MEDS: AZITHROMYCIN 500MG/ 250ML 250 ML IV SCH (10:00)
[2023-02-24] MEDS ORDERED: hydrALAZINE HCL 20 MG/ML VL IV PRN (17:00)
[2023-02-24 17:21] LABS: Folate (Folic Acid) > 24.00 ng/mL (5.38-24)
[2023-02-24 23:45] VITALS: BP 166/78
[2023-02-25 05:00] VITALS: BP 153/72
[2023-02-25 06:33] LABS: Basophils # (auto) 0 10 ^3/uL (0-0.2); Basophils % (auto) 0.2 % (0.0-2.0); Eosinophils # (auto) 0.1 10 ^3/uL (0-0.8); Eosinophils % (auto) 1.5 % (0.0-7.0); Hematocrit 36.2 % (36.0-46.0); Hemoglobin 11.9 g/dL (12.2-16.2); Lymphocytes # (auto) 0.5 10 ^3/uL (0.4-5.4); Lymphocytes % (auto) 10.6 % (10.0-50.0); Mean Corpuscular Hemoglobin 28.1 pg (28.0-32.0); Mean Corpuscular Hgb Conc. 32.9 g/dL (32.0-36.0); Mean Corpuscular Volume 85.4 fL (80.0-100.0); Monocytes # (auto) 0.5 10 ^3/uL (0-1.3); Monocytes % (auto) 10.1 % (0.0-12.0); Neutrophils # (auto) 3.7 10 ^3/uL (1.6-8.6); Neutrophils % (auto) 77.6 % (37.0-80.0); Nucleated Red Blood Cells % 0.4 %; Red Blood Cells 4.24 10^6/uL (4.0-5.20); Red Cell Distribution Width 15.9 % (11.8-14.3); White Blood Cell 4.8 10^3/uL (4.4-10.8)
[2023-02-25 07:08] LABS: BUN/Creatinine Ratio 28.6 (10.0-20.0); Potassium 3.7 mmol/L (3.5-5.1)
[2023-02-25 07:30] VITALS: BP 138/73
[2023-02-25 08:52] VITALS: BP 138/73
[2023-02-25] MEDS: cefTRIAXone 1GM/50ML D5W 50 ML IV SCH (09:00)
[2023-02-25] MEDS: FUROSEMIDE 20 MG/2 ML VIAL IV SCH (09:06)
[2023-02-25] MEDS: FAMOTIDINE (10MG/ML) 2ML VL IV SCH (09:06)
[2023-02-25] MEDS: AZITHROMYCIN 500MG/ 250ML 250 ML IV SCH (09:06)
[2023-02-25] MEDS: ASPirin 81 mg TAB PO SCH (09:25)
[2023-02-25] MEDS: LOSARTAN POTASSIUM 25 MG TAB PO SCH (09:25)
[2023-02-25] MEDS: ENOXAPARIN SOD 30 MG/0.3 ML SYRINGE SC SCH (09:25)
[2023-02-25 12:07] LABS: RPR Non Reactive (Non Reactive)
[2023-02-25 13:00] VITALS: BP 159/70
[2023-02-25 17:00] VITALS: BP 162/80
[2023-02-25 22:00] VITALS: BP 157/72
[2023-02-26] MEDS ORDERED: AMIO200T4 PO (03:50)
[2023-02-26] MEDS ORDERED: DIGO0.12 PO (03:53)
[2023-02-26 05:00] VITALS: BP 154/74
[2023-02-26 06:16] LABS: Potassium 3.8 mmol/L (3.5-5.1)
[2023-02-26 06:23] LABS: Albumin 2.7 g/dL (3.4-5.0); BUN/Creatinine Ratio 27.1 (10.0-20.0); Bilirubin, Total 0.6 mg/dL (0.2-1.0); Total Protein 6.3 g/dL (6.4-8.2)
[2023-02-26] MEDS: LEVOTHYROXINE SODIUM 25 MCG TAB PO SCH (06:28)
[2023-02-26 08:45] VITALS: BP 132/49
[2023-02-26] MEDS: ASPirin 81 mg TAB PO SCH (08:51)
[2023-02-26] MEDS: LOSARTAN POTASSIUM 25 MG TAB PO SCH (08:51)
[2023-02-26] MEDS: ENOXAPARIN SOD 30 MG/0.3 ML SYRINGE SC SCH (08:56)
[2023-02-26] MEDS: cefTRIAXone 1GM/50ML D5W 50 ML IV SCH (09:00)
[2023-02-26] MEDS: FUROSEMIDE 20 MG/2 ML VIAL IV SCH (09:13)
[2023-02-26] MEDS: AZITHROMYCIN 500MG/ 250ML 250 ML IV SCH (09:13)
[2023-02-26] MEDS: FAMOTIDINE (10MG/ML) 2ML VL IV SCH (09:13)
[2023-02-26 12:50] VITALS: BP 154/71
[2023-02-26 17:00] VITALS: BP 158/75
[2023-02-26 21:40] VITALS: BP 146/73
[2023-02-26] MEDS ORDERED: amLODIPine BESYLATE 5 MG TAB PO SCH (22:00)
[2023-02-27 04:58] VITALS: BP 148/67
[2023-02-27] MEDS: LEVOTHYROXINE SODIUM 25 MCG TAB PO SCH (05:59)
[2023-02-27] MEDS: FUROSEMIDE 20 MG/2 ML VIAL IV SCH (08:07)
[2023-02-27] MEDS: AZITHROMYCIN 500MG/ 250ML 250 ML IV SCH (08:07)
[2023-02-27] MEDS: cefTRIAXone 1GM/50ML D5W 50 ML IV SCH (08:07)
[2023-02-27 08:54] VITALS: BP 155/71
[2023-02-27] MEDS: ASPirin 81 mg TAB PO SCH (08:56)
[2023-02-27] MEDS: ENOXAPARIN SOD 30 MG/0.3 ML SYRINGE SC SCH (08:57)
[2023-02-27] MEDS ORDERED: LOSARTAN POTASSIUM 50 MG TAB PO SCH (10:00)
[2023-02-27 12:59] VITALS: BP 145/64
[2023-02-27 15:14] VITALS: BP 145/64
[2023-02-27] MEDS ORDERED: LEV25T PO (17:18)
[2023-02-27] MEDS ORDERED: AZIT250T PO (17:18)
[2023-02-27] MEDS ORDERED: CEPH-510 PO (17:18)
== END 2023-02-27 18:07 | disposition home health service (06) | DRG 183 ==
LOC: EDBD 22:17 → ER 22:17 → OVERFLOW 02-23 07:37 → TELE-WESTW 02-24 22:04
PROVIDERS: ADMIT Nurse Practitioner Family; ATTEND Internal Medicine
DX: S22.41XA Multiple fractures of ribs, right side, initial encounter for closed fracture (principal); J15.6 Pneumonia due to other Gram-negative bacteria; E44.0 Moderate protein-calorie malnutrition; E87.1 Hypo-osmolality and hyponatremia; J44.0 Chronic obstructive pulmonary disease with (acute) lower respiratory infection; J44.1 Chronic obstructive pulmonary disease with (acute) exacerbation; Z68.1 Body mass index [BMI] 19.9 or less, adult; J98.11 Atelectasis; J96.10 Chronic respiratory failure, unspecified whether with hypoxia or hypercapnia; D64.9 Anemia, unspecified; E03.9 Hypothyroidism, unspecified; E78.5 Hyperlipidemia, unspecified; Z66 Do not resuscitate; E86.0 Dehydration; I12.9 Hypertensive chronic kidney disease with stage 1 through stage 4 chronic kidney disease, or unspecified chronic kidney disease; I48.91 Unspecified atrial fibrillation; M54.9 Dorsalgia, unspecified; R74.01 Elevation of levels of liver transaminase levels; R55 Syncope and collapse; Z20.822 Contact with and (suspected) exposure to COVID-19; R79.89 Other specified abnormal findings of blood chemistry; W01.0XXA Fall on same level from slipping, tripping and stumbling without subsequent striking against object, initial encounter; Y93.01 Activity, walking, marching and hiking; Z80.8 Family history of malignant neoplasm of other organs or systems; Z82.49 Family history of ischemic heart disease and other diseases of the circulatory system; Z83.3 Family history of diabetes mellitus; Z87.891 Personal history of nicotine dependence; Z88.0 Allergy status to penicillin; Z90.710 Acquired absence of both cervix and uterus; Z79.899 Other long term (current) drug therapy; Z90.49 Acquired absence of other specified parts of digestive tract; Y92.098 Other place in other non-institutional residence as the place of occurrence of the external cause; Y99.8 Other external cause status
CPT/HCPCS: 36415; 70450; 71045; 71250; 72131; 74176; 80048; 80053; 81001; 82140; 82306; 82607; 82746; 83735; 83880; 84439; 84443; 84484; 85025; 85610; 85730; 86592; 87426; 96365; 96372; 96375; 97110; 97116; 97163; 97530; G0378; J0696; J2405; J3490

== ENCOUNTER 2023-10-08 15:47 | Inpatient (IN) | payer MEDICARE, OTHER ==
[~2023-10-08] VITALS: Ht 160 cm; Wt 52.0 kg
[~2023-10-08 15:47] MED LIST changes: +AZIT-74 PO; -AZIT250T9 PO; +CEPH-510 PO; +DIGO0.12 PO; -FLUC200T50 PO; +LEV25T PO; -LOSA-69 PO; +LOSA50TA46 PO; -METO25TA5 PO; -PRED20TA2 PO; -SIMV-13 PO; +SIMV40TA18 PO
[2023-10-08] MEDS ORDERED: MORPHINE SULFATE INJ 2 MG/ml SYRG IV PRN ×2 (17:00)
[2023-10-08] MEDS ORDERED: NITROGLYCERIN 0.4 MG SL TAB SL PRN (17:00)
[2023-10-08] MEDS ORDERED: ONDANSETRON HCL 4 MG/2 ML VIAL IV PRN (17:00)
[2023-10-08] MEDS ORDERED: HYDROcodone-ACET 5/325MG TAB PO PRN (17:00)
[2023-10-08] MEDS ORDERED: ACETAMINOPHEN 325 MG TAB PO PRN (17:00)
[2023-10-08 17:01] LABS: Basophils # (auto) 0 10 ^3/uL (0-0.2); Eosinophils # (auto) 0.3 10 ^3/uL (0-0.8); Hematocrit 29.1 % (36.0-46.0); Hemoglobin 8.8 g/dL (12.2-16.2); Lymphocytes # (auto) 1.1 10 ^3/uL (0.4-5.4); Mean Corpuscular Volume 77.7 fL (80.0-100.0)
[2023-10-08 17:03] LABS: Basophils % (auto) 0.5 % (0.0-2.0); Eosinophils % (auto) 3.6 % (0.0-7.0); Lymphocytes % (auto) 14.4 % (10.0-50.0); Mean Corpuscular Hemoglobin 23.4 pg (28.0-32.0); Mean Corpuscular Hgb Conc. 30.2 g/dL (32.0-36.0); Monocytes # (auto) 0.7 10 ^3/uL (0-1.3); Monocytes % (auto) 8.7 % (0.0-12.0); Neutrophils # (auto) 5.7 10 ^3/uL (1.6-8.6); Neutrophils % (auto) 72.8 % (37.0-80.0); Nucleated Red Blood Cells % 0.1 %; Red Blood Cells 3.75 10^6/uL (4.0-5.20); Red Cell Distribution Width 17.9 % (11.8-14.3); White Blood Cell 7.8 10^3/uL (4.4-10.8)
[2023-10-08 17:19] LABS: INR 0.97 (0.9-1.15); Partial Thromboplastin Time < 20.0 SEC (24.5-34.5); Prothrombin Time 10.2 sec (9.3-11.8)
[2023-10-08 17:23] LABS: Alanine Aminotransferase 23 U/L (7-40); Albumin 4.3 g/dL (3.2-4.8); Alkaline Phosphatase 71 U/L (46-116); Anion Gap 6 (5-15); Aspartate Aminotransferase 36 U/L (13-40); BUN/Creatinine Ratio 26.6 (10.0-20.0); Blood Urea Nitrogen 29 mg/dL (9-23); Calcium 9.5 mg/dL (8.5-10.1); Carbon Dioxide 30 mmol/L (20-30); Chloride 108 mmol/L (98-107); Glucose 93 mg/dL (74-106); Potassium 4.7 mmol/L (3.5-5.1); Sodium 144 mmol/L (136-145)
[2023-10-08 17:24] LABS: Bilirubin, Total 0.3 mg/dL (0.2-1.0); Total Protein 6.7 g/dL (5.7-8.2)
[2023-10-08] MEDS ORDERED: IPRATROPIUM BROM 0.5 MG/2.5ML INH SOL NEB PRN (17:30)
[2023-10-08] MEDS ORDERED: ALBUTEROL MEDNEB 2.5 mg/3ml NEB NEB PRN (17:30)
[2023-10-08 18:16] LABS: Erythrocyte Sedimentation Rate 31 mm/hr (0-20)
[2023-10-08 18:20] LABS: Folate (Folic Acid) 22.64 ng/mL (>5.38)
[2023-10-08] MEDS ORDERED: ALBUTEROL SULF 2.5 MG/0.5ML(0.5%) NEB SOLN NEB ONE (18:45)
[2023-10-08] MEDS ORDERED: IPRATROPIUM BROM 0.5 MG/2.5ML INH SOL NEB ONE (18:45)
[2023-10-08] MEDS ORDERED: methylPREDNISolone SOD SUCC 125 MG/2 ML VL IV ONE (18:45)
[2023-10-08] MEDS ORDERED: ENOXAPARIN SOD 60 MG/0.6 ML SYRINGE SC ONE (19:00)
[2023-10-08 19:07] VITALS: BP 137/42; PULSE 74; RESP 18; TEMP 97.7; O2SAT 99
[2023-10-08] MEDS: FUROSEMIDE 20 MG/2 ML VIAL IV SCH (19:40)
[2023-10-08 19:45] VITALS: PULSE 90; RESP 16; O2SAT 90
[2023-10-08] MEDS: ATORVASTATIN 20 MG TAB PO SCH (22:00)
[2023-10-09] VITALS (16 sets, daily range): BP systolic 95–159; BP diastolic 45–75; PULSE 69–97; RESP 16–26; TEMP 97.3–98.3; O2SAT 92–99
[2023-10-09 00:50] LABS: Urine Bacteria NONE SEEN /hpf (None Seen); Urine Blood Negative /uL (Negative); Urine Clarity Clear (Clear); Urine Color Colorless (Yellow); Urine Protein, UAD Negative (Negative); Urine Urobilinogen Normal (Negative); Urine WBC 1 /hpf (0 - 5)
[2023-10-09 06:16] LABS: Basophils # (auto) 0 10 ^3/uL (0-0.2); Eosinophils # (auto) 0 10 ^3/uL (0-0.8); Hemoglobin 8.4 g/dL (12.2-16.2); Lymphocytes # (auto) 0.5 10 ^3/uL (0.4-5.4); Monocytes # (auto) 0.1 10 ^3/uL (0-1.3); Neutrophils # (auto) 4.5 10 ^3/uL (1.6-8.6); Red Cell Distribution Width 17.9 % (11.8-14.3); White Blood Cell 5.1 10^3/uL (4.4-10.8)
[2023-10-09 06:17] LABS: Basophils % (auto) 0.2 % (0.0-2.0); Eosinophils % (auto) 0.1 % (0.0-7.0); Hematocrit 27.4 % (36.0-46.0); Lymphocytes % (auto) 9.3 % (10.0-50.0); Mean Corpuscular Hemoglobin 23.4 pg (28.0-32.0); Mean Corpuscular Hgb Conc. 30.6 g/dL (32.0-36.0); Mean Corpuscular Volume 76.6 fL (80.0-100.0); Monocytes % (auto) 1.9 % (0.0-12.0); Neutrophils % (auto) 88.5 % (37.0-80.0); Nucleated Red Blood Cells % 0.1 %; Red Blood Cells 3.58 10^6/uL (4.0-5.20)
[2023-10-09 06:21] LABS: Chloride 105 mmol/L (98-107); Potassium 4.6 mmol/L (3.5-5.1); Sodium 141 mmol/L (136-145)
[2023-10-09 06:22] LABS: Anion Gap 6 (5-15); Carbon Dioxide 30 mmol/L (20-30)
[2023-10-09 06:23] LABS: Calcium 9.2 mg/dL (8.7-10.4)
[2023-10-09 06:27] LABS: Glucose 144 mg/dL (74-106)
[2023-10-09 06:28] LABS: BUN/Creatinine Ratio 23.1 (10.0-20.0); Blood Urea Nitrogen 27 mg/dL (9-23)
[2023-10-09] MEDS: LEVOTHYROXINE SODIUM 25 MCG TAB PO SCH (06:30)
[2023-10-09] MEDS: FUROSEMIDE 20 MG/2 ML VIAL IV SCH ×2 (06:30→18:28)
[2023-10-09] MEDS ORDERED: LACTULOSE 20Gm/30ML SOLN PO ONE (09:30)
[2023-10-09] MEDS ORDERED: ASPirin 81 mg TAB PO SCH (10:00)
[2023-10-09] MEDS ORDERED: ENOXAPARIN SOD 60 MG/0.6 ML SYRINGE SC SCH (10:00)
[2023-10-09] MEDS ORDERED: DIGOXIN 0.125 MG TAB PO SCH (10:00)
[2023-10-09 10:41] LABS: Hemoglobin 8.9 g/dL (12.2-16.2)
[2023-10-09 10:43] LABS: Hematocrit 28.3 % (36.0-46.0)
[2023-10-09] MEDS ORDERED: PANTOPRAZOLE 40 MG TAB PO ONE (10:45)
[2023-10-09] MEDS ORDERED: MORPHINE SULFATE INJ 2 MG/ml SYRG IV PRN (13:45)
[2023-10-09] MEDS ORDERED: METOPROLOL SUCCINATE XL 50 MG TAB PO ONE (13:45)
[2023-10-09] MEDS ORDERED: AMIODARONE HCL 200 MG TAB PO ONE (13:45)
[2023-10-09] MEDS ORDERED: fentaNYL CITRATE 100 MCG/2 ML VL ONE ×2 (14:52→16:25)
[2023-10-09] MEDS ORDERED: MIDAZOLAM HCL 2MG/2ML 2ml VIAL (1mg/ml) ONE ×2 (14:53→16:20)
[2023-10-09] MEDS ORDERED: IODIXANOL 320MG/ML 100ML BTL IV ONE ×3 (16:17→17:06)
[2023-10-09] MEDS ORDERED: LIDOCAINE 2%HCL (LOCAL ANESTH.) INJ 20ML MDV ONE ×2 (16:17→16:21)
[2023-10-09] MEDS ORDERED: VERAPAMIL 2.5MG/ML INJ 2ML VIAL IV ONE (16:20)
[2023-10-09 21:54] LABS: Hematocrit 30.4 % (36.0-46.0)
[2023-10-09] MEDS ORDERED: PANTOPRAZOLE 40 MG TAB PO SCH (22:00)
[2023-10-10] VITALS (9 sets, daily range): BP systolic 97–135; BP diastolic 31–60; PULSE 63–92; RESP 18–70; TEMP 97.4–98.2; O2SAT 92–98
[2023-10-10] MEDS: PANTOPRAZOLE 40 MG/10 ML VIAL INJ IV SCH ×3 (00:02→22:14)
[2023-10-10] MEDS: AMIODARONE HCL 200 MG TAB PO SCH ×3 (00:02→22:00)
[2023-10-10] MEDS: ATORVASTATIN 20 MG TAB PO SCH ×2 (00:03→22:14)
[2023-10-10 06:01] LABS: Chloride 102 mmol/L (98-107); Potassium 4.3 mmol/L (3.5-5.1); Sodium 142 mmol/L (136-145)
[2023-10-10 06:02] LABS: Anion Gap 10 (5-15); Carbon Dioxide 30 mmol/L (20-30)
[2023-10-10 06:05] LABS: Basophils # (auto) 0 10 ^3/uL (0-0.2); Lymphocytes # (auto) 1.1 10 ^3/uL (0.4-5.4); Red Blood Cells 3.85 10^6/uL (4.0-5.20)
[2023-10-10 06:07] LABS: BUN/Creatinine Ratio 19.5 (10.0-20.0); Blood Urea Nitrogen 31 mg/dL (9-23); Glucose 104 mg/dL (74-106)
[2023-10-10 06:09] LABS: Basophils % (auto) 0.5 % (0.0-2.0); Eosinophils # (auto) 0.1 10 ^3/uL (0-0.8); Eosinophils % (auto) 0.8 % (0.0-7.0); Hematocrit 29.8 % (36.0-46.0); Hemoglobin 9.1 g/dL (12.2-16.2); Mean Corpuscular Hemoglobin 23.6 pg (28.0-32.0); Mean Corpuscular Hgb Conc. 30.4 g/dL (32.0-36.0); Mean Corpuscular Volume 77.4 fL (80.0-100.0); Monocytes # (auto) 0.6 10 ^3/uL (0-1.3); Monocytes % (auto) 6.4 % (0.0-12.0); Neutrophils # (auto) 8.1 10 ^3/uL (1.6-8.6); Neutrophils % (auto) 81.3 % (37.0-80.0); Nucleated Red Blood Cells % 0.1 %
[2023-10-10] MEDS: FUROSEMIDE 20 MG/2 ML VIAL IV SCH (06:42)
[2023-10-10] MEDS: LEVOTHYROXINE SODIUM 25 MCG TAB PO SCH (07:28)
[2023-10-10] MEDS ORDERED: LACTULOSE 20Gm/30ML SOLN PO ONE (08:45)
[2023-10-10] MEDS: METOPROLOL SUCCINATE XL 50 MG TAB PO SCH (10:10)
[2023-10-10] MEDS ORDERED: OMNIPAQUE 12mg/ml 500ml ORAL SOLUTION PO ONE (10:14)
[2023-10-10 11:53] LABS: % Iron Saturation 5.6 % (15-50)
[2023-10-10] MEDS ORDERED: SODIUM FERR GLUC 62.5MG/5ML 125 MG in SODIUM CHL 0.9% 100 ML IV ONE (17:30)
[2023-10-11 05:00] VITALS: BP 119/91; PULSE 72; RESP 18; TEMP 98; O2SAT 96
[2023-10-11 05:42] LABS: Basophils # (auto) 0 10 ^3/uL (0-0.2); Eosinophils # (auto) 0.1 10 ^3/uL (0-0.8); Hemoglobin 8.5 g/dL (12.2-16.2); Lymphocytes # (auto) 0.5 10 ^3/uL (0.4-5.4); Mean Corpuscular Volume 76.3 fL (80.0-100.0); Monocytes # (auto) 0.6 10 ^3/uL (0-1.3)
[2023-10-11 05:43] LABS: Anion Gap 6 (5-15); Calcium 8.9 mg/dL (8.7-10.4); Carbon Dioxide 33 mmol/L (20-30); Chloride 102 mmol/L (98-107); Sodium 141 mmol/L (136-145)
[2023-10-11 05:44] LABS: Basophils % (auto) 0.2 % (0.0-2.0); Eosinophils % (auto) 1.2 % (0.0-7.0); Hematocrit 27.3 % (36.0-46.0); Lymphocytes % (auto) 7.1 % (10.0-50.0); Mean Corpuscular Hemoglobin 23.7 pg (28.0-32.0); Monocytes % (auto) 8.7 % (0.0-12.0); Neutrophils # (auto) 5.6 10 ^3/uL (1.6-8.6); Neutrophils % (auto) 82.8 % (37.0-80.0); Red Blood Cells 3.58 10^6/uL (4.0-5.20); Red Cell Distribution Width 18.1 % (11.8-14.3); White Blood Cell 6.7 10^3/uL (4.4-10.8)
[2023-10-11 05:49] LABS: BUN/Creatinine Ratio 25.9 (10.0-20.0); Blood Urea Nitrogen 38 mg/dL (9-23); Glucose 89 mg/dL (74-106)
[2023-10-11] MEDS: LEVOTHYROXINE SODIUM 25 MCG TAB PO SCH (05:53)
[2023-10-11 07:45] VITALS: O2SAT 99
[2023-10-11 09:00] VITALS: BP 109/42; PULSE 66; RESP 12; TEMP 98.6; O2SAT 99
[2023-10-11] MEDS: AMIODARONE HCL 200 MG TAB PO SCH (09:48)
[2023-10-11] MEDS: PANTOPRAZOLE 40 MG/10 ML VIAL INJ IV SCH (09:48)
[2023-10-11] MEDS: METOPROLOL SUCCINATE XL 50 MG TAB PO SCH (09:49)
[2023-10-11 10:41] VITALS: O2SAT 99
[2023-10-11] MEDS ORDERED: SODIUM FERR GLUC 62.5MG/5ML 125 MG in SODIUM CHL 0.9% 100 ML IV SCH (12:00)
[2023-10-11 13:00] VITALS: BP 136/54; PULSE 78; RESP 20; TEMP 97.9; O2SAT 96
[2023-10-11] MEDS ORDERED: INFLUENZA QUAD 2023-2024 0.5 ML SYRG IM ONE (13:15)
== END 2023-10-11 15:43 | DRG 299 ==
LOC: ER 15:47 → OVERFLOW 16:52 → WEST WING 10-09 02:45
PROVIDERS: ADMIT Internal Medicine; ATTEND Internal Medicine
PROC: 06H03DZ Insertion of Intraluminal Device into Inferior Vena Cava, Percutaneous Approach (ICD-10-PCS; principal; 2023-10-09)
PROC: B5191ZZ Fluoroscopy of Inferior Vena Cava using Low Osmolar Contrast (ICD-10-PCS; 2023-10-09)
DX: I82.412 Acute embolism and thrombosis of left femoral vein (principal); I26.99 Other pulmonary embolism without acute cor pulmonale; I50.33 Acute on chronic diastolic (congestive) heart failure; N17.0 Acute kidney failure with tubular necrosis; J44.1 Chronic obstructive pulmonary disease with (acute) exacerbation; K92.2 Gastrointestinal hemorrhage, unspecified; J96.10 Chronic respiratory failure, unspecified whether with hypoxia or hypercapnia; E78.5 Hyperlipidemia, unspecified; I12.9 Hypertensive chronic kidney disease with stage 1 through stage 4 chronic kidney disease, or unspecified chronic kidney disease; F02.80 Dementia in other diseases classified elsewhere, unspecified severity, without behavioral disturbance, psychotic disturbance, mood disturbance, and anxiety; G30.9 Alzheimer's disease, unspecified; N18.9 Chronic kidney disease, unspecified; Z23 Encounter for immunization; I95.1 Orthostatic hypotension; I48.0 Paroxysmal atrial fibrillation; D63.1 Anemia in chronic kidney disease; E03.9 Hypothyroidism, unspecified; Z99.81 Dependence on supplemental oxygen; Z90.49 Acquired absence of other specified parts of digestive tract; Z91.81 History of falling; Z90.710 Acquired absence of both cervix and uterus; Z87.891 Personal history of nicotine dependence; Z83.3 Family history of diabetes mellitus; Z80.8 Family history of malignant neoplasm of other organs or systems; Z82.49 Family history of ischemic heart disease and other diseases of the circulatory system
CPT/HCPCS: 36415; 37191; 70450; 71045; 71275; 74176; 80048; 80053; 80162; 81001; 82270; 82378; 82607; 82746; 83036; 83540; 83550; 83605; 83615; 83735; 83880; 84443; 84484; 85014; 85018; 85025; 85045; 85610; 85652; 85730; 86141; 86301; 86304; 86850; 86900; 86901; 90686; 93005; 93306; 93970; 94640; 96372; 96374; 96375; 97110; 97116; 97163; 99152; C9113; G0378; J2250; Q9967

== ENCOUNTER 2023-10-18 18:27 | Emergency (ER) | payer MEDICARE, OTHER ==
[~2023-10-18] VITALS: Ht 154.9 cm; Wt 43.0 kg
[2023-10-18 19:28] LABS: Basophils # (auto) 0 10 ^3/uL (0-0.2); Basophils % (auto) 0.3 % (0.0-2.0); Eosinophils # (auto) 0.2 10 ^3/uL (0-0.8); Eosinophils % (auto) 2.4 % (0.0-7.0); Hematocrit 29.6 % (36.0-46.0); Hemoglobin 8.9 g/dL (12.2-16.2); Lymphocytes # (auto) 0.6 10 ^3/uL (0.4-5.4); Lymphocytes % (auto) 8.9 % (10.0-50.0); Mean Corpuscular Hgb Conc. 30.1 g/dL (32.0-36.0); Mean Corpuscular Volume 79.5 fL (80.0-100.0); Monocytes # (auto) 0.6 10 ^3/uL (0-1.3); Monocytes % (auto) 9.2 % (0.0-12.0); Neutrophils # (auto) 5.4 10 ^3/uL (1.6-8.6); Neutrophils % (auto) 79.2 % (37.0-80.0); Red Blood Cells 3.73 10^6/uL (4.0-5.20); White Blood Cell 6.8 10^3/uL (4.4-10.8)
[2023-10-18 19:30] LABS: Red Cell Distribution Width 20.5 % (11.8-14.3)
[2023-10-18 19:46] LABS: Alanine Aminotransferase 165 U/L (7-40); Albumin 3.6 g/dL (3.2-4.8); Anion Gap 5 (5-15); Aspartate Aminotransferase 160 U/L (13-40); BUN/Creatinine Ratio 19.3 (10.0-20.0); Bilirubin, Total 4.2 mg/dL (0.2-1.0); Blood Urea Nitrogen 23 mg/dL (9-23); Calcium 8.3 mg/dL (8.7-10.4); Carbon Dioxide 28 mmol/L (20-30); Chloride 108 mmol/L (98-107); Glucose 133 mg/dL (74-106); Potassium 4.2 mmol/L (3.5-5.1); Sodium 141 mmol/L (136-145)
[2023-10-18 19:47] LABS: Total Protein 5.9 g/dL (5.7-8.2)
[2023-10-18 19:54] LABS: Alkaline Phosphatase 1090 U/L (46-116)
[2023-10-18] MEDS ORDERED: PANTOPRAZOLE 40 MG/10 ML VIAL INJ IV ONE (22:15)
[2023-10-18] MEDS ORDERED: SODIUM CHLORIDE 0.9% 250 ML IV ONE (22:15)
[2023-10-18] MEDS ORDERED: ONDANSETRON HCL 4 MG/2 ML VIAL IV ONE (22:15)
[2023-10-18 23:00] VITALS: PULSE 60; RESP 24; O2SAT 99
[2023-10-18] MEDS ORDERED: IOHEXOL 300 MG/ML 100ML BOTTLE IJ ONE (23:10)
[2023-10-18 23:11] LABS: INR 1.1 (0.9-1.15); Prothrombin Time 11.5 sec (9.3-11.8)
[2023-10-19 04:30] VITALS: PULSE 66; RESP 22; O2SAT 100
[2023-10-19 05:30] VITALS: PULSE 66; RESP 22; O2SAT 100
[2023-10-19 07:50] VITALS: PULSE 79; RESP 26; O2SAT 95
[2023-10-19 08:42] LABS: Urine Bacteria NONE SEEN /hpf (None Seen); Urine Blood Negative /uL (Negative); Urine Clarity HAZY (Clear); Urine Color Yellow (Yellow); Urine Protein, UAD 1+ (Negative); Urine WBC 9 /hpf (0 - 5)
[2023-10-19] MEDS ORDERED: cefTRIAXone 1GM/50ML D5W 50 ML IV ONE (11:30)
[2023-10-19 14:14] VITALS: BP 136/72; PULSE 68; RESP 12; TEMP 97.3; O2SAT 100
== END 2023-10-19 15:06 | disposition short-term general hospital (02) ==
LOC: ER 18:27 → EDBD 18:27 → ER 10-19 15:06
DX: R17 Unspecified jaundice (principal); R13.10 Dysphagia, unspecified; J44.9 Chronic obstructive pulmonary disease, unspecified; I12.9 Hypertensive chronic kidney disease with stage 1 through stage 4 chronic kidney disease, or unspecified chronic kidney disease; N18.9 Chronic kidney disease, unspecified; E78.5 Hyperlipidemia, unspecified; Z90.49 Acquired absence of other specified parts of digestive tract; Z88.0 Allergy status to penicillin; Z90.710 Acquired absence of both cervix and uterus; Z87.891 Personal history of nicotine dependence
CPT/HCPCS: 36415; 71045; 74177; 76705; 80053; 81001; 83605; 83735; 83880; 84484; 85025; 85610; 85730; 87040; 93005; 96361; 96365; 96375; 99285; C9113; J0696; J2405; J7050; Q9967

== ENCOUNTER 2023-10-29 10:58 | Inpatient (IN) | payer MEDICARE, OTHER ==
[~2023-10-29] VITALS: Ht 172.7 cm; Wt 61.8 kg
[2023-10-29] MEDS ORDERED: SODIUM CHLORIDE 0.9% 1,000 ML IV ONE (13:15)
[2023-10-29] MEDS ORDERED: ACETAMINOPHEN 325 MG TAB PO ONE (13:15)
[2023-10-29 13:26] LABS: Base Excess 11.8 mmol/L (-2.0-2.0)
[2023-10-29 13:48] LABS: Basophils # (auto) 0 10 ^3/uL (0-0.2); Eosinophils # (auto) 0 10 ^3/uL (0-0.8); Eosinophils % (auto) 0.1 % (0.0-7.0); Lymphocytes # (auto) 0.5 10 ^3/uL (0.4-5.4); Mean Corpuscular Volume 78.5 fL (80.0-100.0); Monocytes # (auto) 0.4 10 ^3/uL (0-1.3)
[2023-10-29 13:49] LABS: Basophils % (auto) 0.3 % (0.0-2.0); Hematocrit 33.4 % (36.0-46.0); Hemoglobin 10.8 g/dL (12.2-16.2); Lymphocytes % (auto) 4.6 % (10.0-50.0); Mean Corpuscular Hemoglobin 25.3 pg (28.0-32.0); Mean Corpuscular Hgb Conc. 32.2 g/dL (32.0-36.0); Monocytes % (auto) 4.2 % (0.0-12.0); Neutrophils # (auto) 9.2 10 ^3/uL (1.6-8.6); Neutrophils % (auto) 90.8 % (37.0-80.0); Red Blood Cells 4.26 10^6/uL (4.0-5.20); Red Cell Distribution Width 19.9 % (11.8-14.3); White Blood Cell 10.1 10^3/uL (4.4-10.8)
[2023-10-29 14:17] LABS: Alanine Aminotransferase 73 U/L (7-40); Albumin 3.6 g/dL (3.2-4.8); Alkaline Phosphatase 941 U/L (46-116); Anion Gap 3 (5-15); Aspartate Aminotransferase 83 U/L (13-40); BUN/Creatinine Ratio 12.5 (10.0-20.0); Blood Urea Nitrogen 21 mg/dL (9-23); Calcium 8.5 mg/dL (8.7-10.4); Carbon Dioxide 37 mmol/L (20-30); Chloride 93 mmol/L (98-107); Glucose 137 mg/dL (74-106); Lipase 47 U/L (12-53); Magnesium 1.8 mg/dL (1.6-2.6); Sodium 133 mmol/L (136-145)
[2023-10-29 14:18] LABS: Bilirubin, Total 1.9 mg/dL (0.2-1.0); Total Protein 6.7 g/dL (5.7-8.2)
[2023-10-29 14:23] LABS: INR 1.09 (0.9-1.15); Prothrombin Time 11.4 sec (9.3-11.8)
[2023-10-29] MEDS ORDERED: levoFLOXacin 750MG 150 ML IV ONE (15:00)
[2023-10-29 16:10] VITALS: PULSE 74; RESP 16; O2SAT 95
[2023-10-29 16:12] LABS: COVID19 ANTIGEN SOFIA FIA NEGATIVE (NEGATIVE)
[2023-10-29 16:13] LABS: Rapid Influenza A Negative (Negative); Rapid Influenza B Negative (Negative)
[2023-10-29] MEDS ORDERED: MORPHINE SULFATE INJ 2 MG/ml SYRG IV PRN (17:15)
[2023-10-29] MEDS ORDERED: HYDROcodone-ACET 5/325MG TAB PO PRN (17:15)
[2023-10-29] MEDS ORDERED: ACETAMINOPHEN 500 MG TAB PO PRN (17:15)
[2023-10-29] MEDS ORDERED: ONDANSETRON HCL 4 MG/2 ML VIAL IV PRN (17:15)
[2023-10-29] MEDS: ALBUTEROL SULF 2.5 MG/0.5ML(0.5%) NEB SOLN NEB SCH (18:43)
[2023-10-29] MEDS: IPRATROPIUM BROM 0.5 MG/2.5ML INH SOL NEB SCH (18:43)
[2023-10-29] MEDS: BUDESONIDE (INHALATION) 0.5 MG/2 ML NEB NEB SCH (18:43)
[2023-10-29 18:46] VITALS: PULSE 71; RESP 18; O2SAT 96
[2023-10-29 18:54] VITALS: PULSE 73; RESP 18; O2SAT 100
[2023-10-29 19:04] LABS: Urine Bacteria NONE SEEN /hpf (None Seen); Urine Blood Negative /uL (Negative); Urine Clarity Clear (Clear); Urine Color Yellow (Yellow); Urine Hyaline Cast FEW /lpf (0 - 2); Urine Protein, UAD 1+ (Negative); Urine Specific Gravity 1.018 (1.001-1.035); Urine WBC 1 /hpf (0 - 5); Urine pH 5.5 (5.0-8.0)
[2023-10-29] MEDS: CALCIUM ACETATE 667 MG CAP PO SCH (19:09)
[2023-10-29 19:31] VITALS: BP 108/46; PULSE 76; RESP 25; TEMP 97.6; O2SAT 93
[2023-10-29 20:00] VITALS: PULSE 83; RESP 19; O2SAT 93
[2023-10-30] VITALS (15 sets, daily range): BP systolic 106–147; BP diastolic 46–67; PULSE 73–84; RESP 16–22; TEMP 97.9–98.6; O2SAT 81–100
[2023-10-30 06:08] LABS: Basophils # (auto) 0 10 ^3/uL (0-0.2); Basophils % (auto) 0.1 % (0.0-2.0); Eosinophils # (auto) 0 10 ^3/uL (0-0.8); Lymphocytes # (auto) 0.8 10 ^3/uL (0.4-5.4); White Blood Cell 7.3 10^3/uL (4.4-10.8)
[2023-10-30 06:11] LABS: Hematocrit 30.1 % (36.0-46.0); Hemoglobin 9.7 g/dL (12.2-16.2); Lymphocytes % (auto) 10.3 % (10.0-50.0); Mean Corpuscular Hemoglobin 25.4 pg (28.0-32.0); Mean Corpuscular Hgb Conc. 32.2 g/dL (32.0-36.0); Mean Corpuscular Volume 78.7 fL (80.0-100.0); Monocytes # (auto) 0.5 10 ^3/uL (0-1.3); Monocytes % (auto) 6.8 % (0.0-12.0); Neutrophils # (auto) 6.1 10 ^3/uL (1.6-8.6); Neutrophils % (auto) 82.8 % (37.0-80.0); Red Blood Cells 3.83 10^6/uL (4.0-5.20)
[2023-10-30] MEDS: ALBUTEROL SULF 2.5 MG/0.5ML(0.5%) NEB SOLN NEB SCH ×3 (06:18→18:09)
[2023-10-30] MEDS: IPRATROPIUM BROM 0.5 MG/2.5ML INH SOL NEB SCH ×3 (06:18→18:09)
[2023-10-30] MEDS: BUDESONIDE (INHALATION) 0.5 MG/2 ML NEB NEB SCH ×2 (06:19→18:09)
[2023-10-30 06:22] LABS: Anion Gap 7 (5-15); Carbon Dioxide 32 mmol/L (20-30); Chloride 97 mmol/L (98-107); Potassium 3.6 mmol/L (3.5-5.1); Sodium 136 mmol/L (136-145)
[2023-10-30 06:24] LABS: Calcium 8.8 mg/dL (8.5-10.1)
[2023-10-30 06:28] LABS: BUN/Creatinine Ratio 15.7 (10.0-20.0); Blood Urea Nitrogen 22 mg/dL (9-23); Glucose 73 mg/dL (74-106)
[2023-10-30 06:35] LABS: Red Cell Distribution Width 20.2 % (11.8-14.3)
[2023-10-30] MEDS: LEVOTHYROXINE SODIUM 25 MCG TAB PO SCH (06:47)
[2023-10-30] MEDS: CALCIUM ACETATE 667 MG CAP PO SCH ×2 (08:24→18:00)
[2023-10-30] MEDS ORDERED: ERGOCALCIFEROL 50,000 UNIT(1.25MG) CAP PO SCH (08:30)
[2023-10-30] MEDS ORDERED: levoFLOXacin 500MG 100 ML IV SCH (10:00)
[2023-10-30] MEDS: LOSARTAN POTASSIUM 50 MG TAB PO SCH (10:57)
[2023-10-30] MEDS: ENOXAPARIN SOD 30 MG/0.3 ML SYRINGE SC SCH (10:57)
[2023-10-30] MEDS: DIGOXIN 0.125 MG TAB PO SCH (10:57)
[2023-10-30] MEDS: ASPirin-EC 81 mg tab PO SCH (11:00)
[2023-10-31] VITALS (15 sets, daily range): BP systolic 102–149; BP diastolic 50–68; PULSE 66–110; RESP 15–20; TEMP 97.5–98.1; O2SAT 92–99
[2023-10-31] MEDS: LEVOTHYROXINE SODIUM 25 MCG TAB PO SCH (06:17)
[2023-10-31 06:41] LABS: Basophils # (auto) 0 10 ^3/uL (0-0.2); Basophils % (auto) 0.1 % (0.0-2.0); Eosinophils # (auto) 0 10 ^3/uL (0-0.8); Eosinophils % (auto) 0.1 % (0.0-7.0); Mean Corpuscular Volume 78.9 fL (80.0-100.0); Monocytes # (auto) 0.4 10 ^3/uL (0-1.3); White Blood Cell 6.3 10^3/uL (4.4-10.8)
[2023-10-31 06:43] LABS: Hematocrit 31.2 % (36.0-46.0); Lymphocytes # (auto) 0.7 10 ^3/uL (0.4-5.4); Lymphocytes % (auto) 11.1 % (10.0-50.0); Mean Corpuscular Hemoglobin 25.3 pg (28.0-32.0); Mean Corpuscular Hgb Conc. 32.1 g/dL (32.0-36.0); Monocytes % (auto) 6.9 % (0.0-12.0); Neutrophils # (auto) 5.1 10 ^3/uL (1.6-8.6); Neutrophils % (auto) 81.8 % (37.0-80.0); Red Blood Cells 3.96 10^6/uL (4.0-5.20); Red Cell Distribution Width 20.1 % (11.8-14.3)
[2023-10-31 06:52] LABS: Anion Gap 6 (5-15); Calcium 8.5 mg/dL (8.7-10.4); Carbon Dioxide 33 mmol/L (20-30); Chloride 98 mmol/L (98-107); Potassium 3.5 mmol/L (3.5-5.1); Sodium 137 mmol/L (136-145)
[2023-10-31 06:58] LABS: Glucose 82 mg/dL (74-106)
[2023-10-31 06:59] LABS: BUN/Creatinine Ratio 16.7 (10.0-20.0); Blood Urea Nitrogen 18 mg/dL (9-23)
[2023-10-31] MEDS: BUDESONIDE (INHALATION) 0.5 MG/2 ML NEB NEB SCH ×2 (08:02→18:03)
[2023-10-31] MEDS: ALBUTEROL SULF 2.5 MG/0.5ML(0.5%) NEB SOLN NEB SCH ×3 (08:02→18:03)
[2023-10-31] MEDS: IPRATROPIUM BROM 0.5 MG/2.5ML INH SOL NEB SCH ×3 (08:02→18:03)
[2023-10-31] MEDS: ASPirin-EC 81 mg tab PO SCH (09:03)
[2023-10-31] MEDS: ENOXAPARIN SOD 30 MG/0.3 ML SYRINGE SC SCH (09:03)
[2023-10-31] MEDS: CALCIUM ACETATE 667 MG CAP PO SCH ×3 (09:04→18:11)
[2023-10-31] MEDS: LOSARTAN POTASSIUM 50 MG TAB PO SCH (09:04)
[2023-10-31] MEDS: DIGOXIN 0.125 MG TAB PO SCH (09:04)
[2023-10-31] MEDS ORDERED: VANCOMYCIN PER PHARMACY 0 MG IV SCH (09:30)
[2023-10-31] MEDS ORDERED: MEROPENEM 500MG IVPB 50 ML IV ONE (09:45)
[2023-10-31] MEDS ORDERED: VANCOMYCIN 750mg/250ml 250 ML IV ONE (12:00)
[2023-11-01] VITALS (12 sets, daily range): BP systolic 119–147; BP diastolic 49–62; PULSE 68–87; RESP 16–20; TEMP 97.4–98.4; O2SAT 93–100
[2023-11-01] MEDS: LEVOTHYROXINE SODIUM 25 MCG TAB PO SCH (06:26)
[2023-11-01] MEDS: IPRATROPIUM BROM 0.5 MG/2.5ML INH SOL NEB SCH ×3 (07:58→18:23)
[2023-11-01] MEDS: ALBUTEROL SULF 2.5 MG/0.5ML(0.5%) NEB SOLN NEB SCH ×3 (07:58→18:23)
[2023-11-01] MEDS: BUDESONIDE (INHALATION) 0.5 MG/2 ML NEB NEB SCH ×2 (07:58→18:30)
[2023-11-01 08:45] LABS: Basophils # (auto) 0 10 ^3/uL (0-0.2); Hemoglobin 9.7 g/dL (12.2-16.2); Monocytes # (auto) 0.4 10 ^3/uL (0-1.3); White Blood Cell 4.6 10^3/uL (4.4-10.8)
[2023-11-01 08:48] LABS: Basophils % (auto) 0.2 % (0.0-2.0); Chloride 99 mmol/L (98-107); Eosinophils # (auto) 0.1 10 ^3/uL (0-0.8); Eosinophils % (auto) 1.3 % (0.0-7.0); Hematocrit 30.9 % (36.0-46.0); Lymphocytes # (auto) 0.9 10 ^3/uL (0.4-5.4); Lymphocytes % (auto) 19.2 % (10.0-50.0); Mean Corpuscular Hemoglobin 24.9 pg (28.0-32.0); Mean Corpuscular Hgb Conc. 31.5 g/dL (32.0-36.0); Mean Corpuscular Volume 79.2 fL (80.0-100.0); Monocytes % (auto) 8.9 % (0.0-12.0); Neutrophils # (auto) 3.3 10 ^3/uL (1.6-8.6); Neutrophils % (auto) 70.4 % (37.0-80.0); Potassium 4.3 mmol/L (3.5-5.1); Sodium 139 mmol/L (136-145)
[2023-11-01 08:49] LABS: Anion Gap 9 (5-15); Carbon Dioxide 31 mmol/L (20-30)
[2023-11-01 08:53] LABS: Red Cell Distribution Width 20.1 % (11.8-14.3)
[2023-11-01 08:54] LABS: BUN/Creatinine Ratio 27.9 (10.0-20.0); Glucose 84 mg/dL (74-106)
[2023-11-01 08:58] LABS: Blood Urea Nitrogen 34 mg/dL (9-23)
[2023-11-01] MEDS: CALCIUM ACETATE 667 MG CAP PO SCH ×3 (10:03→18:00)
[2023-11-01] MEDS: ENOXAPARIN SOD 30 MG/0.3 ML SYRINGE SC SCH (10:04)
[2023-11-01] MEDS: LOSARTAN POTASSIUM 50 MG TAB PO SCH (10:04)
[2023-11-01] MEDS: SODIUM CHLORIDE 0.9% 1,000 ML IV SCH (10:11)
[2023-11-01] MEDS ORDERED: ASPirin 81 mg TAB PO ONE (10:15)
[2023-11-01] MEDS ORDERED: VANCOMYCIN 750mg/250ml 250 ML IV SCH (13:00)
[2023-11-01] MEDS: VANCOMYCIN 750mg/250ml 250 ML IV SCH (14:00)
[2023-11-02] VITALS (13 sets, daily range): BP systolic 122–161; BP diastolic 54–71; PULSE 71–90; RESP 15–20; TEMP 97.6–98.2; O2SAT 94–100
[2023-11-02 05:30] LABS: Basophils # (auto) 0 10 ^3/uL (0-0.2); Lymphocytes # (auto) 1.1 10 ^3/uL (0.4-5.4); Monocytes # (auto) 0.4 10 ^3/uL (0-1.3); Nucleated Red Blood Cells % 0.1 %
[2023-11-02 05:33] LABS: Basophils % (auto) 0.3 % (0.0-2.0); Eosinophils # (auto) 0.2 10 ^3/uL (0-0.8); Eosinophils % (auto) 3.1 % (0.0-7.0); Hematocrit 32.1 % (36.0-46.0); Lymphocytes % (auto) 21.2 % (10.0-50.0); Mean Corpuscular Hgb Conc. 31.2 g/dL (32.0-36.0); Monocytes % (auto) 7.9 % (0.0-12.0); Neutrophils # (auto) 3.4 10 ^3/uL (1.6-8.6); Neutrophils % (auto) 67.5 % (37.0-80.0); Red Blood Cells 4.02 10^6/uL (4.0-5.20)
[2023-11-02 05:48] LABS: Calcium 9.2 mg/dL (8.5-10.1); Chloride 102 mmol/L (98-107); Potassium 4.2 mmol/L (3.5-5.1); Sodium 140 mmol/L (136-145)
[2023-11-02 05:49] LABS: Anion Gap 8 (5-15); Carbon Dioxide 30 mmol/L (20-30)
[2023-11-02 05:54] LABS: BUN/Creatinine Ratio 27.9 (10.0-20.0); Blood Urea Nitrogen 29 mg/dL (9-23)
[2023-11-02 06:05] LABS: Red Cell Distribution Width 20.4 % (11.8-14.3)
[2023-11-02] MEDS: ALBUTEROL SULF 2.5 MG/0.5ML(0.5%) NEB SOLN NEB SCH ×3 (06:07→19:28)
[2023-11-02] MEDS: IPRATROPIUM BROM 0.5 MG/2.5ML INH SOL NEB SCH ×3 (06:07→19:28)
[2023-11-02] MEDS: BUDESONIDE (INHALATION) 0.5 MG/2 ML NEB NEB SCH ×2 (06:07→19:28)
[2023-11-02 06:11] LABS: Glucose 75 mg/dL (74-106)
[2023-11-02] MEDS: LEVOTHYROXINE SODIUM 25 MCG TAB PO SCH (06:29)
[2023-11-02] MEDS: SODIUM CHLORIDE 0.9% 1,000 ML IV SCH ×2 (06:29→12:41)
[2023-11-02 09:12] LABS: Magnesium 1.9 mg/dL (1.6-2.6)
[2023-11-02 09:27] LABS: CRP High Sensitivity 2.89 mg/dL (<1.0)
[2023-11-02] MEDS: ASPirin 81 mg TAB PO SCH (11:23)
[2023-11-02] MEDS: CALCIUM ACETATE 667 MG CAP PO SCH ×3 (11:23→18:03)
[2023-11-02] MEDS: CITALOPRAM HYDROBR 20 MG TAB PO SCH (11:24)
[2023-11-02] MEDS: LOSARTAN POTASSIUM 50 MG TAB PO SCH (11:25)
[2023-11-02] MEDS: ENOXAPARIN SOD 30 MG/0.3 ML SYRINGE SC SCH (11:25)
[2023-11-02] MEDS ORDERED: AZITHROMYCIN 500MG/ 250ML 250 ML IV ONE (14:00)
[2023-11-02] MEDS: VANCOMYCIN 750mg/250ml 250 ML IV SCH (14:33)
[2023-11-02] MEDS: methylPREDNISolone SOD SUCC 40 MG/ML VL IV SCH ×2 (14:39→22:28)
[2023-11-02] MEDS ORDERED: ATORVASTATIN 20 MG TAB PO SCH (22:00)
[2023-11-03] VITALS (10 sets, daily range): BP systolic 122–139; BP diastolic 52–91; PULSE 67–94; RESP 18–20; TEMP 97.7–98.2; O2SAT 93–99
[2023-11-03 05:55] LABS: Basophils # (auto) 0 10 ^3/uL (0-0.2); Eosinophils # (auto) 0 10 ^3/uL (0-0.8); Hematocrit 29.9 % (36.0-46.0); Monocytes # (auto) 0.1 10 ^3/uL (0-1.3)
[2023-11-03 05:58] LABS: % Iron Saturation 14.2 % (15-50); Hemoglobin 9.6 g/dL (12.2-16.2); Lymphocytes # (auto) 0.4 10 ^3/uL (0.4-5.4); Lymphocytes % (auto) 8.5 % (10.0-50.0); Mean Corpuscular Hemoglobin 25.2 pg (28.0-32.0); Mean Corpuscular Volume 78.8 fL (80.0-100.0); Monocytes % (auto) 1.3 % (0.0-12.0); Neutrophils # (auto) 3.8 10 ^3/uL (1.6-8.6); Neutrophils % (auto) 90.2 % (37.0-80.0); Nucleated Red Blood Cells % 0.2 %; Red Cell Distribution Width 19.7 % (11.8-14.3); White Blood Cell 4.2 10^3/uL (4.4-10.8)
[2023-11-03 06:03] LABS: Alanine Aminotransferase 73 U/L (7-40); Albumin 3.7 g/dL (3.2-4.8); Alkaline Phosphatase 801 U/L (46-116); Anion Gap 6 (5-15); Aspartate Aminotransferase 89 U/L (13-40); BUN/Creatinine Ratio 34.5 (10.0-20.0); Blood Urea Nitrogen 30 mg/dL (9-23); Carbon Dioxide 32 mmol/L (20-30); Chloride 99 mmol/L (98-107); Glucose 126 mg/dL (74-106); Potassium 4.8 mmol/L (3.5-5.1); Sodium 137 mmol/L (136-145)
[2023-11-03 06:04] LABS: Total Protein 6.9 g/dL (5.7-8.2)
[2023-11-03 06:12] LABS: CRP High Sensitivity 1.58 mg/dL (<1.0)
[2023-11-03] MEDS: methylPREDNISolone SOD SUCC 40 MG/ML VL IV SCH ×2 (06:18→13:49)
[2023-11-03] MEDS: LEVOTHYROXINE SODIUM 25 MCG TAB PO SCH (06:19)
[2023-11-03] MEDS: SODIUM CHLORIDE 0.9% 1,000 ML IV SCH ×2 (06:19→13:50)
[2023-11-03] MEDS: ALBUTEROL SULF 2.5 MG/0.5ML(0.5%) NEB SOLN NEB SCH ×2 (07:37→12:37)
[2023-11-03] MEDS: IPRATROPIUM BROM 0.5 MG/2.5ML INH SOL NEB SCH ×2 (07:37→12:37)
[2023-11-03] MEDS: BUDESONIDE (INHALATION) 0.5 MG/2 ML NEB NEB SCH (07:37)
[2023-11-03] MEDS: ENOXAPARIN SOD 30 MG/0.3 ML SYRINGE SC SCH (08:37)
[2023-11-03] MEDS: LOSARTAN POTASSIUM 50 MG TAB PO SCH (08:38)
[2023-11-03] MEDS: ASPirin 81 mg TAB PO SCH (08:38)
[2023-11-03] MEDS: CALCIUM ACETATE 667 MG CAP PO SCH ×2 (08:38→12:00)
[2023-11-03] MEDS: CITALOPRAM HYDROBR 20 MG TAB PO SCH (08:38)
[2023-11-03] MEDS ORDERED: AZITHROMYCIN 500MG/ 250ML 250 ML IV SCH (10:00)
[2023-11-03] MEDS: VANCOMYCIN 750mg/250ml 250 ML IV SCH (13:49)
[2023-11-04] MEDS ORDERED: ENOXAPARIN SOD 40 MG/0.4 ML SYRINGE SC SCH (10:00)
== END 2023-11-03 16:15 | disposition hospice, home (50) | DRG 189 ==
LOC: ER 10:58 → EDBD 10:58 → EDSEX 10:58 → OVERFLOW 17:14 → CENTRAL 23:48
PROVIDERS: ADMIT Internal Medicine; ATTEND Internal Medicine
DX: J96.21 Acute and chronic respiratory failure with hypoxia (principal); E43 Unspecified severe protein-calorie malnutrition; I21.A1 Myocardial infarction type 2; N17.0 Acute kidney failure with tubular necrosis; J12.9 Viral pneumonia, unspecified; J44.1 Chronic obstructive pulmonary disease with (acute) exacerbation; J44.0 Chronic obstructive pulmonary disease with (acute) lower respiratory infection; N18.4 Chronic kidney disease, stage 4 (severe); D68.69 Other thrombophilia; I50.32 Chronic diastolic (congestive) heart failure; I13.0 Hypertensive heart and chronic kidney disease with heart failure and stage 1 through stage 4 chronic kidney disease, or unspecified chronic kidney disease; Z68.1 Body mass index [BMI] 19.9 or less, adult; E78.5 Hyperlipidemia, unspecified; F02.80 Dementia in other diseases classified elsewhere, unspecified severity, without behavioral disturbance, psychotic disturbance, mood disturbance, and anxiety; G30.9 Alzheimer's disease, unspecified; I48.91 Unspecified atrial fibrillation; Z20.822 Contact with and (suspected) exposure to COVID-19; R74.01 Elevation of levels of liver transaminase levels; E03.9 Hypothyroidism, unspecified; D50.9 Iron deficiency anemia, unspecified; I48.0 Paroxysmal atrial fibrillation; Z86.711 Personal history of pulmonary embolism; Z99.81 Dependence on supplemental oxygen; Z87.891 Personal history of nicotine dependence; Z88.0 Allergy status to penicillin; Z90.710 Acquired absence of both cervix and uterus; Z90.49 Acquired absence of other specified parts of digestive tract
CPT/HCPCS: 36415; 36600; 70450; 71045; 80048; 80053; 80061; 80162; 80320; 81001; 82306; 82565; 82607; 82746; 82805; 83540; 83550; 83605; 83615; 83690; 83735; 83880; 84443; 84484; 85025; 85045; 85379; 85610; 86141; 87040; 87077; 87081; 87186; 87426; 87804; 93005; 93970; 94640; G0378; J1956; J2185